=== PATIENT | male | born 1950 | race Caucasian/White ===

== ENCOUNTER 2020-08-11 10:03 | Outpatient (REF) | payer MEDICARE, BC, SELFPAY ==
[2020-08-11 12:56] LABS: Prostate Specific Antigen 0.08 ng/mL (<0.05-4.0)
== END 2020-08-11 10:04 | disposition home or self-care (01) ==
LOC: HO.LAB 10:03
PROVIDERS: PCP Internal Medicine; Visit Provider Urology
DX: Z12.5 Encounter for screening for malignant neoplasm of prostate (principal); C61 Malignant neoplasm of prostate
CPT/HCPCS: 84153

== ENCOUNTER 2020-12-19 08:40 | Outpatient (REF) | payer MEDICARE, BC, SELFPAY ==
[2020-12-19 09:18] LABS: MANUAL DIFF FLAG NO
[2020-12-19 09:26] LABS: Basophils Percent Auto 0.4 % (0-2); Eosinophils Absolute Auto 0.2 X10*3/uL (0.0-0.4); Eosinophils Percent Auto 3.3 % (0-4); Hematocrit 42.4 % (42-52); Hemoglobin 14.6 g/dl (14.0-18.0); Imm Gran Abs Auto 0.03 X10*3/uL (0.00-0.03); Imm Gran Pct Auto 0.4 % (0.0-0.4); Lymphocytes Absolute Auto 1.5 X10*3/uL (1.2-4.9); Lymphocytes Percent Auto 22.1 % (20-40); Mean Corpuscular HGB Conc 34.4 g/dl (31.0-36.0); Mean Corpuscular Hemoglobin 30.6 pg (27.0-33.0); Mean Corpuscular Volume 88.9 fL (80-98); Mean Platelet Volume 9.5 fL (9.4-12.4); Monocytes Absolute Auto 0.5 X10*3/uL (0.1-1.2); Monocytes Percent Auto 7.1 % (2-11); Neutrophils Absolute Auto 4.5 X10*3/uL (2.0-8.3); Neutrophils Percent Auto 66.7 % (45-73); Platelet Count 246 X10*3/uL (160-400); Red Blood Count 4.77 X10*6/uL (4.60-5.80); Red Cell Distribution Width 13.7 % (11.0-16.0); White Blood Count 6.8 X10*3/uL (4.8-10.8)
[2020-12-19 09:56] LABS: Alanine Aminotransferase 18 U/L (0-40); Albumin Level 4.4 g/dL (3.5-5.0); Alkaline Phosphatase 42 U/L (39-117); Anion Gap 13 (12-20); Aspartate Amino Transferase 18 U/L (5-37); Bilirubin Total 0.7 mg/dL (0.0-1.0); Blood Urea Nitrogen 24 mg/dL (9-16); Calcium 9.3 mg/dL (8.4-10.2); Carbon Dioxide 27 mmol/L (22-29); Chloride 108 mmol/L (96-108); Cholesterol 151 mg/dL; Estimated Glomerular Filt Rate > 60; Glucose Fasting 99 mg/dL (60-99); HDL Cholesterol 38 mg/dL; LDL Cholesterol Calculated 99 mg/dl; Potassium 4.6 mmol/L (3.3-5.1); Sodium 143 mmol/L (135-145); Total Protein 7.6 g/dL (6.5-8.0); Triglycerides 74 mg/dL
[2020-12-19 10:27] LABS: PSA,Total (Free>4and<10) 0.09 ng/mL (0.00-4.00)
[2020-12-19 11:02] LABS: T4 Thyroxine 6.4 ug/dL (4.5-12.0)
[2020-12-22 01:32] LABS: Folate 10.5 ng/mL (> or = 4.0); Vitamin B12 298 pg/mL (200-900)
== END 2020-12-19 08:41 | disposition home or self-care (01) ==
LOC: HO.LAB 08:40
PROVIDERS: PCP Internal Medicine; Visit Provider Internal Medicine
DX: Z00.00 Encounter for general adult medical examination without abnormal findings (principal); Z12.5 Encounter for screening for malignant neoplasm of prostate; D12.6 Benign neoplasm of colon, unspecified; E78.00 Pure hypercholesterolemia, unspecified; Z85.46 Personal history of malignant neoplasm of prostate; Z72.0 Tobacco use
CPT/HCPCS: 36415; 80053; 80061; 82607; 82746; 84153; 84436; 84443; 85025

== ENCOUNTER → 2021-02-06 13:52 | Outpatient (BNVA) | payer MEDICARE, BC, SELFPAY | PROVIDERS: PCP Internal Medicine; Visit Provider Urology | DX: Z13.89 Encounter for screening for other disorder (principal) | CPT/HCPCS: Q3014 ==

== ENCOUNTER 2021-07-31 11:23 | Outpatient (REF) | payer MEDICARE, BC, SELFPAY ==
[2021-07-31 12:57] LABS: Prostate Specific Antigen 0.07 ng/mL (<0.05-4.0)
== END 2021-07-31 11:24 | disposition home or self-care (01) ==
LOC: HO.LAB 11:23
PROVIDERS: PCP Internal Medicine; Visit Provider Urology
DX: Z12.6 Encounter for screening for malignant neoplasm of bladder (principal); C61 Malignant neoplasm of prostate
CPT/HCPCS: 36415; 84153

== ENCOUNTER → 2021-08-08 11:25 | Outpatient (BNVA) | payer MEDICARE, BC, SELFPAY | PROVIDERS: PCP Internal Medicine; Visit Provider Urology | DX: C61 Malignant neoplasm of prostate (principal); E78.00 Pure hypercholesterolemia, unspecified; E55.9 Vitamin D deficiency, unspecified; Z88.8 Allergy status to other drugs, medicaments and biological substances; Z79.899 Other long term (current) drug therapy | CPT/HCPCS: Q3014 ==

== ENCOUNTER 2021-08-24 11:09 | Outpatient (REF) | payer MEDICARE, BC, SELFPAY | END 2021-08-24 11:10 | disposition home or self-care (01) | LOC: HO.LAB 11:09 | PROVIDERS: PCP Internal Medicine; Visit Provider Internal Medicine | DX: Z20.822 Contact with and (suspected) exposure to COVID-19 (principal) | CPT/HCPCS: C9803; U0003; U0005 ==

== ENCOUNTER 2021-12-24 07:50 | Outpatient (REF) | payer MEDICARE, BC, SELFPAY ==
[2021-12-24 08:04] LABS: MANUAL DIFF FLAG NO
[2021-12-24 08:24] LABS: Basophils Percent Auto 0.4 % (0-2); Eosinophils Absolute Auto 0.4 X10*3/uL (0.0-0.4); Eosinophils Percent Auto 4.8 % (0-4); Hematocrit 44.7 % (42.0-52.0); Hemoglobin 15.2 g/dl (14.0-18.0); Imm Gran Abs Auto 0.04 X10*3/uL (0.00-0.03); Imm Gran Pct Auto 0.5 % (0.0-0.4); Lymphocytes Absolute Auto 2.2 X10*3/uL (1.2-4.9); Lymphocytes Percent Auto 30.3 % (20-40); Mean Corpuscular Hemoglobin 30.8 pg (27.0-33.0); Mean Corpuscular Volume 90.7 fL (80.0-98.0); Mean Platelet Volume 9.4 fL (9.4-12.4); Monocytes Absolute Auto 0.5 X10*3/uL (0.1-1.2); Neutrophils Absolute Auto 4.2 x10*3/uL (2.0-8.3); Platelet Count 278 X10*3/uL (160-400); Red Blood Count 4.93 X10*6/uL (4.60-5.80); Red Cell Distribution Width 13.7 % (11.0-16.0); White Blood Count 7.3 X10*3/uL (4.8-10.8)
[2021-12-24 08:44] LABS: Alanine Aminotransferase 14 U/L (0-40); Albumin Level 4.4 g/dL (3.5-5.0); Alkaline Phosphatase 42 U/L (39-117); Anion Gap 11 (12-20); Aspartate Amino Transferase 19 U/L (5-37); Bilirubin Total 0.8 mg/dL (0.0-1.0); Blood Urea Nitrogen 19 mg/dL (9-16); Calcium 9.5 mg/dL (8.4-10.2); Carbon Dioxide 27 mmol/L (22-29); Chloride 109 mmol/L (96-108); Cholesterol 161 mg/dL; Estimated Glomerular Filt Rate > 60; Glucose Random 96 mg/dL (60-115); HDL Cholesterol 36 mg/dL; LDL Cholesterol Calculated 105 mg/dl; Potassium 4.4 mmol/L (3.3-5.1); Sodium 143 mmol/L (135-145); Total Protein 7.4 g/dL (6.5-8.0); Triglycerides 100 mg/dL
[2021-12-24 09:05] LABS: Free T4 (Free Thyroxine) 0.84 ng/dL (0.71-1.85); PSA,Total (Free>4and<10) 0.08 ng/mL (0.00-4.00); Thyroid Stimulating Hormone 2.31 uIU/mL (0.32-4.0); Vitamin D 25-OH Total 34.2 ng/mL (>30)
[2021-12-24 09:33] LABS: Folate 8.9 ng/mL (> or = 4.0); Vitamin B12 289 pg/mL (200-900)
== END 2021-12-24 07:51 | disposition home or self-care (01) ==
LOC: HO.LAB 07:50
PROVIDERS: PCP Internal Medicine; Visit Provider Internal Medicine
DX: Z12.5 Encounter for screening for malignant neoplasm of prostate (principal); C61 Malignant neoplasm of prostate; E78.00 Pure hypercholesterolemia, unspecified
CPT/HCPCS: 36415; 80053; 80061; 82306; 82607; 82746; 84153; 84439; 84443; 85025

== ENCOUNTER 2021-12-31 18:06 | Emergency (ER) | payer MEDICARE, BC, SELFPAY ==
--- NOTE | ~2021-12-31 | XR_ITS ---
EXAMINATION: XR CHEST CLINICAL INFORMATION: Food impaction. COMPARISON: None. TECHNIQUE: AP view of the chest was obtained. FINDINGS: The tracheal air column appears patent. No unexpected radiopaque foreign bodies. Normal appearance of the cardiomediastinal silhouette. No focal airspace opacities, pleural effusions or pneumothorax. No acute osseous abnormalities. XR/XR chest 1V IMPRESSION: No acute cardiopulmonary abnormalities. No unexpected radiopaque foreign bodies. If indicated, for food impaction, consider correlation with an esophagram.
[2021-12-31 18:26] VITALS: BP 164/71; PULSE 88; O2SAT 99
[2021-12-31 18:33] VITALS: BP 141/75; PULSE 75; RESP 18; O2SAT 95; BMI 20.3
--- NOTE | 2021-12-31 18:43 | ED.SKABFB ---
HPI - Skin/Abscess/Foreign Bdy General Chief complaint: Skin/Abscess/Foreign Body Stated complaint: CHICKEN STUCK IN THROAT,+TALK,-SWALLOW PER EMS Time Seen by Provider: 12/31/21 18:17 Source: patient Mode of arrival: EMS Limitations: no limitations History of Present Illness HPI narrative: Patient with history of achalazia with frequent food impaction has not had endoscopy yet had chicken just prior to arrival and feel food stuck in mid chest spitting up saliva prior to arrival Related Data Home Medications Medication Instructions Recorded Confirmed cholecalciferol (vitamin D3) 25 25 mcg PO DAILY 12/26/20 12/28/21 mcg (1,000 unit) capsule sildenafil 50 mg tablet 50 mg PO DAILY PRN 12/26/20 12/28/21 calcium carbonate 200 mg calcium 200 mg PO .QD PRN tab 12/28/21 12/28/21 (500 mg) chewable tablet (Tums) omeprazole 20 mg capsule,delayed 20 mg PO DAILY PRN 12/28/21 12/28/21 release Previous Rx's Medication Instructions Recorded atorvastatin 10 mg tablet 10 mg PO DAILY 90 Days #90 tab 12/28/21 fenofibrate 160 mg tablet 160 mg PO DAILY 90 Days #90 tab 12/28/21 Allergies Allergy/AdvReac Type Severity Reaction Status Date / Time simvastatin Allergy Unknown Unknown Verified 12/28/21 08:58 Review of Systems Review of Systems: Yes all other systems are reviewed and are negative [facility] Past Medical History Medical History GERD (gastroesophageal reflux disease) Hypercholesterolemia Medicare annual wellness visit, initial Prostate cancer Tobacco abuse Vitamin D deficiency Surgical History History of colectomy History of ear surgery History of excision of pilonidal cyst History of eye surgery History of nasal surgery History of placement of ear tubes History of skin graft History of surgery on arm Family History Family History Father Liver cancer Mother Liver cancer Sister Esophagus cancer Social History Social History Alcohol intake: current Alcohol intake frequency: 3 or more drinks per day Alcohol type: wine Patient Tobacco Use Status: Current someday Tobacco user Years Smoked: 3-4 cigars a month Advance Directives: No Advance Directives Information Provided: No Physical Exam Vital Signs: Vital Signs: Last Vital Signs Pulse 75 12/31/21 18:33 Resp 18 12/31/21 18:33 BP 141/75 H 12/31/21 18:33 Pulse Ox 95 12/31/21 18:33 BMI result Body Mass Index 20.3 Appearance: Alert. Oriented X3. No acute distress. ENT: Pharynx normal. Oral Mucosa moist Neck: Normal inspection. Neck supple. No stridor CVS: Normal heart rate and rhythm. Pulses normal. Respiratory: No respiratory distress. Equal air entry bilateral, no wheezing/rales/rhonchi Abdomen: Soft and nontender. Bowel sounds are present, Skin: Skin warm and dry. Normal skin color. Normal skin turgor. Extremities: No lower extremity edema. No calf tenderness Neuro: Oriented X 3. No motor deficit. MDM - Skin/Abscess/Foreign Bdy MDM Narrative Medical decision making narrative: Patient had samuel austyn and chicken piece passed down able to take p.o. fluids chest x-ray negative patient has planned to have endoscopy done soon advised to have liquid diet for now Discharge Plan Discharge Clinical Impression: Achalasia of esophagus Patient Disposition: Home, Self-Care Instructions: Dysphagia (ED) Additional Instructions: Try to have semi solid food only with lot of liquids Follow-up with recep as scheduled for endoscopy Prescriptions: No Action sildenafil 50 mg tablet 50 mg PO DAILY PRN0RF Rx Instructions: administer 30 minutes to 4 hours before activity cholecalciferol (vitamin D3) 25 mcg (1,000 unit) capsule 25 mcg PO DAILY 0RF omeprazole 20 mg capsule,delayed release(DR/EC) 20 mg PO DAILY PRN (Reason: gerd) 0RF calcium carbonate [Tums] 200 mg calcium (500 mg) tablet,chewable 200 mg PO .QD PRN (Reason: dyspepsia) 0RF atorvastatin 10 mg tablet 10 mg PO DAILY 90 Days Qty: 90 3RF fenofibrate 160 mg tablet 160 mg PO DAILY 90 Days Qty: 90 3RF Interventions: ED Discharge Assessment Last Done: 12/31/21 19:42 Discharge Date/Time: 12/31/21 19:43
== END 2021-12-31 19:43 | disposition home or self-care (01) ==
PROVIDERS: Emergency Provider Internal Medicine; PCP Internal Medicine
DX: K22.0 Achalasia of cardia (principal); E78.5 Hyperlipidemia, unspecified; F17.200 Nicotine dependence, unspecified, uncomplicated; Z79.02 Long term (current) use of antithrombotics/antiplatelets
CPT/HCPCS: 71045; 99283

== ENCOUNTER 2022-01-08 11:15 | Day surgery (SDC) | payer MEDICARE, BC, SELFPAY ==
--- NOTE | 2022-01-07 10:55 | HO.ANESPROP2 ---
Documented by User: Anahi Sow NP 01/07/22 10:56 HPI - Anesthesia Eval Consult details Narrative: 71yo M for Upper Endoscopy with Balloon Dilitation PMFSH Active Problems Active Problems: All Active Problems (Updated 01/01/22 @ 00:01 by Sea Ding) Bicipital tendinitis of left shoulder (Acute) Impacted cerumen of right ear (Acute) Dysphagia (Acute) Vitamin B12 deficiency (Acute) Encounter for subsequent annual wellness visit (AWV) in Medicare patient (Acute) Nocturia more than twice per night (Acute) Prostate cancer (Acute) GERD (gastroesophageal reflux disease) (Acute) Tobacco abuse (Acute) Hypercholesterolemia (Acute) Past Medical History Medical History GERD (gastroesophageal reflux disease) Hypercholesterolemia Medicare annual wellness visit, initial Prostate cancer Tobacco abuse Vitamin D deficiency Family History Family History Father Liver cancer Mother Liver cancer Sister Esophagus cancer Surgical History Surgical History History of colectomy History of ear surgery History of excision of pilonidal cyst History of eye surgery History of nasal surgery History of placement of ear tubes History of skin graft History of surgery on arm Social History Social History Housing: House Alcohol intake: current Alcohol intake frequency: 3 or more drinks per day Alcohol type: wine Patient Tobacco Use Status: Former Tobacco user Tobacco use type: Cigar Years Smoked: 3-4 cigars a month e-Cigarette/Vaping Use: Never Used Second Hand Smoke Exposure: Yes Use of substances other than those prescribed or required for medical reasons: Yes Are you DNR?: No Advance Directives: No Advance Directives Information Provided: Yes Recently lost weight without trying: No Nutrition Risks: No Nutritional Risk Current occupational status: retired Meds Allergies Allergy/AdvReac Type Severity Reaction Status Date / Time simvastatin AdvReac Intermediate Numbness Verified 01/08/22 12:20 Home Medications Medication Instructions Recorded Confirmed Last Taken Type cholecalciferol (vitamin D3) 25 25 mcg PO DAILY 12/26/20 12/28/21 Unknown History mcg (1,000 unit) capsule sildenafil 50 mg tablet 50 mg PO DAILY PRN 12/26/20 12/28/21 Unknown History calcium carbonate 200 mg calcium 200 mg PO .QD PRN tab 12/28/21 12/28/21 Unknown History (500 mg) chewable tablet (Tums) omeprazole 20 mg capsule,delayed 20 mg PO DAILY PRN 12/28/21 12/28/21 Unknown History release Exam Exam Date and Time: January 07, 2022 1055 Pertinent Lab Results Pertinent Lab Results: Laboratory Tests 12/24/21 12/24/21 08:03 08:03 WBC 7.3 Hgb 15.2 Hct 44.7 Plt Count 278 Sodium 143 Potassium 4.4 Chloride 109 H Carbon Dioxide 27 BUN 19 H Creatinine 0.99 Assessment and Plan Assessment Anesthesia Assessment: Chart Reviewed Documented by User: Kishan Ha MD 01/08/22 17:12 [facility] Past Medical History Medical History GERD (gastroesophageal reflux disease) Hypercholesterolemia Medicare annual wellness visit, initial Prostate cancer Tobacco abuse Vitamin D deficiency Family History Family History Father Liver cancer Mother Liver cancer Sister Esophagus cancer Family history of problems with anesthesia: No Surgical History Surgical History History of colectomy History of ear surgery History of excision of pilonidal cyst History of eye surgery History of nasal surgery History of placement of ear tubes History of skin graft History of surgery on arm History of Problems with Anesthesia: No Social History Social History Housing: House Alcohol intake: current Alcohol intake frequency: 3 or more drinks per day Alcohol type: wine Patient Tobacco Use Status: Former Tobacco user Tobacco use type: Cigar Years Smoked: 3-4 cigars a month e-Cigarette/Vaping Use: Never Used Second Hand Smoke Exposure: Yes Use of substances other than those prescribed or required for medical reasons: Yes Are you DNR?: No Advance Directives: No Advance Directives Information Provided: Yes Recently lost weight without trying: No Nutrition Risks: No Nutritional Risk Current occupational status: retired Meds Allergies Allergy/AdvReac Type Severity Reaction Status Date / Time simvastatin AdvReac Intermediate Numbness Verified 01/08/22 12:20 Home Medications Medication Instructions Recorded Confirmed Last Taken Type cholecalciferol (vitamin D3) 25 25 mcg PO DAILY 12/26/20 12/28/21 Unknown History mcg (1,000 unit) capsule sildenafil 50 mg tablet 50 mg PO DAILY PRN 12/26/20 12/28/21 Unknown History calcium carbonate 200 mg calcium 200 mg PO .QD PRN tab 12/28/21 12/28/21 Unknown History (500 mg) chewable tablet (Tums) omeprazole 20 mg capsule,delayed 20 mg PO DAILY PRN 12/28/21 12/28/21 Unknown History release Exam Airway Mallampati Class: II TM Dist: >3cm Neck ROM: Full Partial: Upper Loose/Missing/Broken Teeth: Yes Heart: rrr Lungs: bl breath sounds Assessment and Plan Assessment Anesthesia Assessment: Anesthesia Plan Discussed Final Anesthetic Review Family History of Problems with Anesthesia: No History of Problems with Anesthesia: No NPO: Yes ASA Class: II Final Preanesthetic Review: Meds/Allgs Chart Reviewed, Consent Obtained/Reviewed and Anes Risks/Benef Reviewed Patient Risk: Intermediate Procedure Risk: Intermediate Anesthetic Plan Anesthetic Plan: MAC: Disposition: Standard PACU
[2022-01-08 12:16] VITALS: BMI 20.9
[2022-01-08 12:22] VITALS: BP 132/62; PULSE 53; RESP 16; TEMP 36.6; O2SAT 96
[2022-01-08] MEDS: Lactated Ringers 1,000 ML 100 ML IVCONT (12:29)
--- NOTE | 2022-01-08 13:11 | MHC.SHP ---
Pre-Procedural Eval Section A Date of Service: 01/08/22 The patient is an INPATIENT: No Changes since office visit: No Cold of Flu in the past 2 weeks, No New Medical Problems, No Changes in Medication and No Patient answered all questions The History & Physical has been completed within 30 days and I have reviewed it.: Yes Section B Chief Complaint: dysphagia Allergies: Allergies Allergy/AdvReac Type Severity Reaction Status Date / Time simvastatin AdvReac Intermediate Numbness Verified 01/08/22 12:20 Plan I have reviewed the history and physical and performed a pertinent physical examination on my patient. No changes have occurred unless specified.
--- NOTE | 2022-01-08 13:40 | PM.OP ---
Brief Operative Note Date of Service: 01/08/22 Pre-op diagnosis: dyspahgia Procedure: egd Surgeon: Jean Carlos Dc Anesthesia: MAC Was an Berry Picker Machine Operator used for this Procedure?: No Estimated blood loss (mL): 5 Pathology: other (bxs antrum,egj) Condition: stable Disposition: PACU
[2022-01-08 13:44] VITALS: BP 124/62; PULSE 57; RESP 17; TEMP 36.2; O2SAT 97
--- NOTE | 2022-01-08 13:58 | OP_ITS ---
SURGEON: Jean Carlos Dc MD INDICATIONS: Dysphagia. PREOPERATIVE DIAGNOSIS: POSTOPERATIVE DIAGNOSIS: PROCEDURE PERFORMED: Upper endoscopy with biopsy and balloon dilation. ESTIMATED BLOOD LOSS: COMPLICATIONS: ANESTHESIA: ASSISTANTS: SPECIMENS: MEDICATIONS: Monitored anesthesia care. DESCRIPTION OF PROCEDURE: History and physical were performed. The risks and benefits of the procedure were explained to the patient. Informed consent was obtained. The patient was placed in the left lateral decubitus position. The Olympus video gastroscope was introduced into the esophagus, stomach, and duodenum. Examination was performed. The scope was removed. He tolerated the procedure well. He was returned to the recovery area in stable condition. FINDINGS: Esophagus: The esophagus was normal. There was no stricture, mass or narrowing. The scope easily passed into the stomach. There was no esophagitis. Stomach: The stomach showed no evidence of masses, ulcers, or polyps. Antral biopsies were obtained to evaluate for H pylori. Duodenum: The bulb and second portion were normal. Balloon dilation of the EG junction was performed to 20 mm for 60 seconds through the scope balloon with some superficial laceration of the mucosa consistent with successful dilation. Biopsies were obtained from the EG junction. IMPRESSION: 1. Dysphagia. 2. Balloon dilation of esophagogastric junction. RECOMMENDATION: Follow up the biopsy results. MD NIRAJ Guido/FLORENTINOL / [id number]
[2022-01-08 14:02] VITALS: BP 129/62; PULSE 66; RESP 18; TEMP 36.1; O2SAT 97
== END 2022-01-08 14:44 | disposition home or self-care (01) ==
PROVIDERS: PCP Internal Medicine; Visit Provider Internal Medicine Gastroenterology
PROC: (CPT 43249; principal; 2022-01-08 12:40)
DX: R13.10 Dysphagia, unspecified (principal); R09.89 Other specified symptoms and signs involving the circulatory and respiratory systems; K21.9 Gastro-esophageal reflux disease without esophagitis; E78.00 Pure hypercholesterolemia, unspecified; E55.9 Vitamin D deficiency, unspecified; Z79.899 Other long term (current) drug therapy; Z88.8 Allergy status to other drugs, medicaments and biological substances; Z85.46 Personal history of malignant neoplasm of prostate; Z98.890 Other specified postprocedural states; Z90.49 Acquired absence of other specified parts of digestive tract; Z87.891 Personal history of nicotine dependence
CPT/HCPCS: 43249; 43239; 88305; 88342; C1726

== ENCOUNTER 2022-02-07 07:37 | Outpatient (REF) | payer MEDICARE, BC, SELFPAY ==
[2022-02-07 08:47] LABS: Prostate Specific Antigen 0.06 ng/mL (<0.05-4.0)
== END 2022-02-07 07:38 | disposition home or self-care (01) ==
LOC: HO.LAB 07:37
PROVIDERS: PCP Internal Medicine; Visit Provider Urology
DX: Z12.5 Encounter for screening for malignant neoplasm of prostate (principal); C61 Malignant neoplasm of prostate
CPT/HCPCS: 36415; 84153

== ENCOUNTER → 2022-02-13 13:09 | Outpatient (BNVA) | payer MEDICARE, BC, SELFPAY | PROVIDERS: PCP Internal Medicine; Visit Provider Urology | DX: N52.35 Erectile dysfunction following radiation therapy (principal); C61 Malignant neoplasm of prostate | CPT/HCPCS: 51798; 99212 ==

== ENCOUNTER 2023-02-05 10:12 | Outpatient (REF) | payer MEDICARE, BC, SELFPAY ==
[2023-02-05 12:25] LABS: Prostate Specific Antigen < 0.10 ng/mL (<0.05-4.0)
== END 2023-02-05 10:13 | disposition home or self-care (01) ==
LOC: HO.LAB 10:12
PROVIDERS: PCP Internal Medicine; Visit Provider Urology
DX: N40.1 Benign prostatic hyperplasia with lower urinary tract symptoms (principal); N13.8 Other obstructive and reflux uropathy; C61 Malignant neoplasm of prostate; Z12.5 Encounter for screening for malignant neoplasm of prostate
CPT/HCPCS: 36415; 84153

== ENCOUNTER → 2023-02-13 09:14 | Outpatient (BNVA) | payer MEDICARE, BC, SELFPAY | PROVIDERS: PCP Internal Medicine; Visit Provider Urology | DX: C61 Malignant neoplasm of prostate (principal) | CPT/HCPCS: 51798; 99212 ==

== ENCOUNTER 2023-03-26 08:01 | Outpatient (REF) | payer MEDICARE, BC, SELFPAY ==
[2023-03-26 08:17] LABS: MANUAL DIFF FLAG NO
[2023-03-26 08:33] LABS: Basophils Percent Auto 0.5 % (0-2); Eosinophils Absolute Auto 0.3 X10*3/uL (0.0-0.4); Eosinophils Percent Auto 5.1 % (0-4); Hematocrit 42.2 % (42.0-52.0); Hemoglobin 14.6 g/dl (14.0-18.0); Imm Gran Abs Auto 0.04 X10*3/uL (0.00-0.03); Imm Gran Pct Auto 0.6 % (0.0-0.4); Lymphocytes Absolute Auto 1.9 X10*3/uL (1.2-4.9); Lymphocytes Percent Auto 29.6 % (20-40); Mean Corpuscular HGB Conc 34.6 g/dl (31.0-36.0); Mean Corpuscular Hemoglobin 31.5 pg (27.0-33.0); Mean Corpuscular Volume 90.9 fL (80.0-98.0); Mean Platelet Volume 9.6 fL (9.4-12.4); Monocytes Absolute Auto 0.4 X10*3/uL (0.1-1.2); Monocytes Percent Auto 6.8 % (2-11); Neutrophils Absolute Auto 3.6 x10*3/uL (2.0-8.3); Neutrophils Percent Auto 57.4 % (45-73); Platelet Count 244 X10*3/uL (160-400); Red Blood Count 4.64 X10*6/uL (4.60-5.80); Red Cell Distribution Width 13.7 % (11.0-16.0); White Blood Count 6.3 X10*3/uL (4.8-10.8)
[2023-03-26 09:23] LABS: Alanine Aminotransferase 15 U/L (0-40); Albumin Level 4.2 g/dL (3.5-5.0); Alkaline Phosphatase 39 U/L (39-117); Anion Gap 10 (12-20); Aspartate Amino Transferase 16 U/L (5-37); Bilirubin Total 0.8 mg/dL (0.0-1.0); Blood Urea Nitrogen 19 mg/dL (9-16); Calcium 9.4 mg/dL (8.4-10.2); Carbon Dioxide 27 mmol/L (22-29); Chloride 111 mmol/L (96-108); Cholesterol 140 mg/dL; Estimated Glomerular Filt Rate > 60; Glucose Random 96 mg/dL (60-115); HDL Cholesterol 33 mg/dL; LDL Cholesterol Calculated 89 mg/dl; Potassium 4.5 mmol/L (3.3-5.1); Sodium 143 mmol/L (135-145); Total Protein 6.8 g/dL (6.5-8.0); Triglycerides 93 mg/dL
[2023-03-26 10:00] LABS: Folate 8.8 ng/mL (> or = 4.0); Free T4 (Free Thyroxine) 0.79 ng/dL (0.71-1.85); Prostate Specific Antigen Scr < 0.10 ng/mL (<0.05-4.0); Thyroid Stimulating Hormone 2.46 uIU/mL (0.32-4.0); Vitamin B12 285 pg/mL (200-900)
== END 2023-03-26 08:02 | disposition home or self-care (01) ==
LOC: HO.LAB 08:01
PROVIDERS: PCP Internal Medicine; Visit Provider Internal Medicine
DX: E78.00 Pure hypercholesterolemia, unspecified (principal); Z12.5 Encounter for screening for malignant neoplasm of prostate
CPT/HCPCS: 36415; 80053; 80061; 82607; 82746; 84153; 84439; 84443; 85025

== ENCOUNTER 2023-04-04 11:12 | Outpatient (REF) | payer MEDICARE, BC, SELFPAY ==
--- NOTE | ~2023-04-04 | XR_ITS ---
EXAMINATION: XR SHOULDER, LEFT CLINICAL INFORMATION: Bicipital tendinitis. COMPARISON: None available. TECHNIQUE: Three views of the left shoulder. FINDINGS: Dense calcification is seen in the supraspinatus tendon. Some mild degenerative changes are seen at the AC joint. The acromioclavicular joint is well preserved. No fractures or dislocations. XR/XR shoulder LT min 2V IMPRESSION: Dense calcification in the supraspinatus tendon consistent with calcific tendinitis.
== END 2023-04-04 11:13 | disposition home or self-care (01) ==
LOC: HO.XRAY 11:12
PROVIDERS: PCP Internal Medicine; Visit Provider Internal Medicine
DX: M75.22 Bicipital tendinitis, left shoulder (principal)
CPT/HCPCS: 73030

== ENCOUNTER 2023-05-12 13:54 | Outpatient (AMB) | payer MEDICARE, BC, SELFPAY ==
--- NOTE | 2023-05-12 13:57 | A.OFFVIS_ITS ---
Intake Intake Visit Reasons: TECHNICAL INSTRUCTOR COURSE DEVELOPER-Bicipital tendinitis, left shoulder Intake Note: James is a 73 year old right hand dominant male who presents today as a new patient for a evaluation for left shoulder pain. Patient reports ongoing pain for a year. He states that his pain is more focused in the bicep area. Pain is worse when lifting his arm, pushing, pulling and reaching. Denies numbness and tingling. Allergies simvastatin Adverse Reaction (Intermediate, Verified 05/12/23 14:01) Numbness HPI TECHNICAL INSTRUCTOR COURSE DEVELOPER-Bicipital tendinitis, left shoulder HPI Details 73-year-old right hand dominant male who presents in the office today, as a new patient, for an evaluation of left shoulder pain. The patient reports the pain has been chronic for a year, since 2021. He states his pain is focused in the bicep area. He states the pain increases when lifting his arm, pushing, pulling, or reaching. He denies numbness or tingling. Patient denies a history of diabetes mellitus. [facility] Medical History GERD (gastroesophageal reflux disease) Hypercholesterolemia Medicare annual wellness visit, initial Prostate cancer Tobacco abuse Vitamin D deficiency Surgical History History of colectomy History of ear surgery History of excision of pilonidal cyst History of eye surgery History of nasal surgery History of placement of ear tubes History of skin graft History of surgery on arm Family History Father Liver cancer Mother Liver cancer Sister Esophagus cancer Social History Housing: House Alcohol intake: current Alcohol intake frequency: 3 or more drinks per day Alcohol type: wine Patient Tobacco Use Status: Former Tobacco user Tobacco use type: Cigar Years Smoked: 3-4 cigars a month e-Cigarette/Vaping Use: Never Used Second Hand Smoke Exposure: Yes Current occupational status: retired Cognitive needs: No Hearing needs: No Vision needs: Yes Review of Systems Const All systems reviewed & are unremarkable except as noted in HPI and below Physical Exam Const General: cooperative, healthy appearing, comfortable, no acute distress, well developed and alert Orientation/consciousness: patient oriented x3 HEENT Head: Yes normal to inspection, Yes normocephalic and Yes atraumatic Eyes General: appearance normal, both eyes and all related structures Resp Effort & Inspection: normal respiratory effort and able to speak in complete sentences Cardio Rate: regular rate Peripheral pulses: Peripheral pulses 2+ throughout GI Palpation (GI): Soft to palpation Skin Lesions: no lesions Rashes: no rashes Neuro General: patient oriented x3 Extrem Other: Left shoulder: Able to reach end range with forward flexion. Abduction to 45 degrees. Able to reach T12. Pain with cross-body reach. Pain with empty can. Negative drop arm. NVI. Office Procedures Joint Injection/Drain Joint Injection/Drain Primary Site: left shoulder Prep: site was prepped using aseptic technique, ethochloride spray was applied and injection warnings given Injected: 80 mg of, DepoMedrol, with 8 mL of (2% plain lido) and in the subcromial space Approach Used: posterolateral Procedure: The patient tolerated the procedure well, but had some pain with the injection and there was some relief with the local anesthesia Coding 76183 - Large joint Procedure code (CPT) selection complete Results Reviewed Results Reviewed: 05/12/23 14:27 Lidocaine HCl 2 % MPF [Xylocaine 2 % MPF] 5 ml .ROUTE .STK-MED ONE methylPREDNISolone acetate [DEPO-MedroL] 80 mg .ROUTE .STK-MED ONE Assessment & Plan Assessment & Plan (1) Calcific tendonitis of left shoulder: Code(s): M75.32 - Calcific tendinitis of left shoulder Plan Mr. Sandoval is a 73-year-old right hand dominant male who presents in the office today, as a new patient, for an evaluation of left shoulder pain. The patient reports the pain has been chronic for a year, since 2021. He states his pain is focused in the bicep area. He states the pain increases when lifting his arm, pushing, pulling, or reaching. He denies numbness or tingling. Patient denies a history of diabetes mellitus. The patient was offered a cortisone injection in the left shoulder with 80 mg of DepoMedrol. The patient was explained the risk, benefits, and alternatives to receiving this injection. After receiving consent for the injection, the patient had the procedure done while in office today. The patient tolerated the procedure well with no complications. I discussed the roles of conventional treatment verses surgical intervention. I offered the patient a cortisone injection and physical therapy while in the office today. I also discussed the role of physical therapy to work on ROM and strength. In the event the cortisone does not give him relief we will move forward with physical therapy. I discussed the role of surgical intervention but he would like to defer due to age. In the event the cortisone injection and physical therapy does not give relief we will consider moving forward with an MRI. Follow up will be PRN, or sooner if needed. Patient Instructions: Scribed for Cassi Zavala PA-C by Jackie Lorenzo medical services manager, on 05/12/2023 at 1:58 pm, EST. Your attestation Coding Level of Care Code Est Pt Level 3 (33359) Diagnoses Calcific tendonitis of left shoulder M75.32 CPT Codes Coding - 53199 Large joint: 38573 - Large joint ([id number])
== END 2023-05-12 14:43 | disposition home or self-care (01) ==
PROVIDERS: PCP Internal Medicine; Visit Provider Physician Assistant
DX: M75.32 Calcific tendinitis of left shoulder (principal)
CPT/HCPCS: 20610; 99203

== ENCOUNTER → 2023-05-12 13:54 | Outpatient (BNVA) | payer MEDICARE, BC, SELFPAY | PROVIDERS: PCP Internal Medicine; Visit Provider Physician Assistant | DX: M75.32 Calcific tendinitis of left shoulder (principal) | CPT/HCPCS: 20610; J1040 ==

== ENCOUNTER 2023-08-05 10:22 | Outpatient (REF) | payer MEDICARE, BC, SELFPAY | END 2023-08-05 10:23 | disposition home or self-care (01) | LOC: HO.LAB 10:22 | PROVIDERS: PCP Internal Medicine; Visit Provider Urology | DX: Z12.5 Encounter for screening for malignant neoplasm of prostate (principal); C61 Malignant neoplasm of prostate | CPT/HCPCS: 36415; 84153 ==

== ENCOUNTER 2023-08-19 09:09 | Outpatient (AMB) | payer MEDICARE, BC, SELFPAY ==
--- NOTE | 2023-08-19 09:10 | A.OFFVIS_ITS ---
Intake Intake Visit Reasons: 6m/PSA(set) Intake Note: Patient is Present for Telephone Follow Up PSA Urology Med: None Antibiotic Allergy: None Blood Thinner:None Pharamcy: [facility] Allergies simvastatin Adverse Reaction (Intermediate, Verified 08/19/23 09:11) Numbness Medication List - Last Reconciled 08/19/23 by Sorin King MD atorvastatin 10 mg PO DAILY 90 days cholecalciferol (vitamin D3) 25 mcg PO DAILY fenofibrate 160 mg PO DAILY 90 days omeprazole 20 mg PO DAILY PRN HPI HPI Comments History of Present Illness Details James is a very pleasant male. He is a patient of Dr. Paz. He is seen for the following urologic conditions. - prostate cancer Telemedicine Evaluation 15 min Consultation Doximity Lambert Video attempted PSA remains well controlled Voiding parameters stable Nocturia 2-3 effective emptying, minimal urge Erectile dysfunction remains responsive to Viagra Prostate cancer Fatimah 8 2014 initial therapy radiation with 2 years hormone Prostate cancer diagnosed by Dr. Samuel 2014 Initial [place] score 4+4 Initial therapy - external beam radiation with 2 years [facility] therapy Laboratories - 12/17 PSA 0.1, 08/16 0.1, 12/18 <0.1, <0.1, 08/18 <0.1 Erectile dysfunction Managed with Viagra Good effect Rx for viagra - through [facility] Medical History Medicare annual wellness visit, initial GERD (gastroesophageal reflux disease) Prostate cancer Vitamin D deficiency Tobacco abuse Hypercholesterolemia Surgical History History of skin graft History of colectomy History of ear surgery History of eye surgery History of placement of ear tubes History of surgery on arm History of nasal surgery History of excision of pilonidal cyst Family History Father Liver cancer Mother Liver cancer Sister Esophagus cancer Social History Housing: House Alcohol intake: current Alcohol intake frequency: 3 or more drinks per day Alcohol type: wine Patient Tobacco Use Status: Former Tobacco user Tobacco use type: Cigar Years Smoked: 3-4 cigars a month e-Cigarette/Vaping Use: Never Used Second Hand Smoke Exposure: Yes Current occupational status: retired Cognitive needs: No Hearing needs: No Vision needs: Yes Review of Systems Const All systems reviewed & are unremarkable except as noted in HPI and below Reports no additional complaints Resp Reports no additional complaints GI Reports no additional complaints Reports as per HPI Musc Reports no additional complaints Physical Exam Telemedicine evaluation Appropriate responses Regular breathing rate and rhythm HEENT Head: Yes normal to inspection Ears: hearing grossly normal bilaterally Eyes General: appearance normal, both eyes and all related structures Neck Neck: Yes normal visual inspection Chest Chest palpation & inspection: normal inspection of the chest Resp Effort & Inspection: normal respiratory effort and able to speak in complete sentences Assessment & Plan Assessment & Plan (1) Erectile dysfunction due to and not concurrent with radiation therapy: Code(s): N52.35 - Erectile dysfunction following radiation therapy (2) Prostate cancer: Comment: Grade Group [address] Lombardo, Dr. Alarcon Code(s): C61 - Malignant neoplasm of prostate Plan Six month follow-up Orders: Orders Prostate Specific Antigen 6 Months C61 - Malignant neoplasm of prostate Medications: New sildenafil administer 60 minutes before intended activity 100 mg PO ONCE 90 days PRN 12 tabs 1RF sexual activity N52.35 - Erectile dysfunction following radiation therapy, N52.9 - Male erectile dysfunction, unspecified Patient Instructions: Imaging studies, laboratory and physical exam results were discussed and reviewed in detail. No major barriers to patient understanding were identified. An opportunity to ask questions regarding the treatment plan was provided. All questions were answered. The patient expressed understanding and agreement with the above treatment plan. The patient is aware they should contact our office by phone for worsening of their current condition or the appearance of new urologic symptoms. Compliance is encouraged with any medications and followup testing that is ordered. It is a privilege to participate in the urologic care of your patient. If you have any questions or concerns regarding treatment for the above conditions, or other urologic issues, please do not hesitate to contact me. The office telephone contact is [phone]. This note is constructed using voice recognition software. While every effort has been made to ensure accuracy plastic parts designer errors may have been included. Yours sincerely, Dr Sorin King MD, [facility] - Urology Providers of Expert, Compassionate Care for the Genitourinary System Telehealth Telehealth Location of provider rendering services: practice address Location of patient: address on file Patient Identification confirmed using: Name, : Yes Telehealth method: video Patient verbally consented to treatment: Yes Patient verbally consented to billing insurance company: Yes Patient informed of any privacy concerns related to visit: Yes Coding Level of Care Code Tele Est Pt Level 3 (26705) Diagnoses Erectile dysfunction due to and not concurrent with radiation therapy N52.35 Prostate cancer C61
== END 2023-08-19 11:08 | disposition home or self-care (01) ==
LOC: HO.HUSH 09:09
PROVIDERS: PCP Internal Medicine; Visit Provider Urology
DX: N52.35 Erectile dysfunction following radiation therapy (principal); C61 Malignant neoplasm of prostate
CPT/HCPCS: 99213

== ENCOUNTER → 2023-08-19 09:09 | Outpatient (BNVA) | payer MEDICARE, BC, SELFPAY | PROVIDERS: PCP Internal Medicine; Visit Provider Urology ==

== ENCOUNTER 2023-10-10 13:25 | Outpatient (AMB) | payer MEDICARE, BC, SELFPAY ==
--- NOTE | 2023-10-10 13:36 | MHC.OFFVIS ---
Intake Intake Visit Reasons: ov- Calcific tendonitis of left shoulder Intake Note: James is a 73 year old male who presents today for a follow up of his left shoulder pain. Patient reports he is not doing well, still having pain. He states he would like to get an injection. Allergies simvastatin Adverse Reaction (Intermediate, Verified 10/10/23 13:42) Numbness HPI ov- Calcific tendonitis of left shoulder HPI Details 73-year-old male who presents in the office today for a follow up of left shoulder calcific tendonitis. I last saw the patient in the office on 05/12/2023 where he was given a cortisone injection in the left shoulder. He was instructed in the event the injection did not give him relief he would be referred to physical therapy. We did discuss the role of surgical intervention but he was not interested at that time. While in the office today the patient states he is not doing well and is still having pain. He would like to repeat the cortisone injection. [facility] Medical History Medicare annual wellness visit, initial GERD (gastroesophageal reflux disease) Prostate cancer Vitamin D deficiency Tobacco abuse Hypercholesterolemia Surgical History History of skin graft History of colectomy History of ear surgery History of eye surgery History of placement of ear tubes History of surgery on arm History of nasal surgery History of excision of pilonidal cyst Family History Father Liver cancer Mother Liver cancer Sister Esophagus cancer Social History Housing: House Alcohol intake: current Alcohol intake frequency: 3 or more drinks per day Alcohol type: wine Patient Tobacco Use Status: Former Tobacco user Tobacco use type: Cigar Years Smoked: 3-4 cigars a month e-Cigarette/Vaping Use: Never Used Second Hand Smoke Exposure: Yes Current occupational status: retired Cognitive needs: No Hearing needs: No Vision needs: Yes Review of Systems Const All systems reviewed & are unremarkable except as noted in HPI and below Physical Exam Const General: cooperative, healthy appearing and no acute distress Resp Effort & Inspection: normal respiratory effort and able to speak in complete sentences Cardio Rate: regular rate Peripheral pulses: Peripheral pulses 2+ throughout GI Palpation (GI): Soft to palpation Skin Lesions: no lesions Rashes: no rashes Extrem Other: Left shoulder: Forward flexion and abduction to 45 degrees. Pain with cross-body reach. Unable to access empty can due to range of motion limitations due to pain. NVI. Office Procedures Joint Injection/Drain Joint Injection/Drain Primary Site: left shoulder Prep: site was prepped using aseptic technique, ethochloride spray was applied and injection warnings given Injected: 80 mg of, DepoMedrol, with 8 mL of (2% plain lido ) and in the subcromial space Approach Used: posterolateral Procedure: The patient tolerated the procedure well, but had some pain with the injection and there was some relief with the local anesthesia Coding 01315 - Large joint Procedure code (CPT) selection complete Assessment & Plan Assessment & Plan (1) Calcific tendonitis of left shoulder: Code(s): M75.32 - Calcific tendinitis of left shoulder Plan Mr. Sandoval is a 73-year-old male who presents in the office today for a follow up of left shoulder calcific tendonitis. I last saw the patient in the office on 05/12/2023 where he was given a cortisone injection in the left shoulder. He was instructed in the event the injection did not give him relief he would be referred to physical therapy. We did discuss the role of surgical intervention but he was not interested at that time. While in the office today the patient states he is not doing well and is still having pain. He would like to repeat the cortisone injection. The patient was offered a cortisone injection in the left shoulder with 80 mg of DepoMedrol. The patient was explained the risk, benefits, and alternatives to receiving this injection. After receiving consent for the injection, the patient had the procedure done while in office today. The patient tolerated the procedure well with no complications. The patient will given the cortisone injection a month to allow for possible relief. If after four weeks he does not see improvement in his pain he will call the office and we will order an MRI to evaluate the integrity of the rotator cuff and calcium embedded within to see if surgical removal would be beneficial for the patient. Otherwise, follow up will be PRN, or sooner if needed. Patient Instructions: Scribed for Cassi Zavala PA-C by Jackie Lorenzo medical information officer, on 10/10/2023 at 1:45 pm, EST. Coding Level of Care Code Est Pt Level 3 (73430) Diagnoses Calcific tendonitis of left shoulder M75.32 CPT Codes Coding - 52417 Large joint: 93050 - Large joint ([id number])
== END 2023-10-10 14:07 | disposition home or self-care (01) ==
PROVIDERS: PCP Internal Medicine; Visit Provider Physician Assistant
DX: M75.32 Calcific tendinitis of left shoulder (principal)
CPT/HCPCS: 20610; 99213

== ENCOUNTER → 2023-10-10 13:25 | Outpatient (BNVA) | payer MEDICARE, BC, SELFPAY | PROVIDERS: PCP Internal Medicine; Visit Provider Physician Assistant | DX: M75.32 Calcific tendinitis of left shoulder (principal) | CPT/HCPCS: 20610; 99212; J1040 ==

== ENCOUNTER 2024-02-10 10:29 | Outpatient (REF) | payer MEDICARE, BC, SELFPAY ==
[2024-02-10 12:02] LABS: Prostate Specific Antigen < 0.10 ng/mL (<0.05-4.0)
== END 2024-02-10 10:30 | disposition home or self-care (01) ==
LOC: HO.LAB 10:29
PROVIDERS: PCP Internal Medicine; Visit Provider Urology
DX: Z12.5 Encounter for screening for malignant neoplasm of prostate (principal); C61 Malignant neoplasm of prostate
CPT/HCPCS: 36415; 84153

== ENCOUNTER 2024-02-18 11:19 | Outpatient (AMB) | payer MEDICARE, BC, SELFPAY ==
--- NOTE | 2024-02-18 11:26 | A.OFFVIS_ITS ---
Intake Visit Reasons: 6M PSA(set)Confirmed Intake Note: Patient is Present for Follow Up PSA Urology Medication: Sildenafil Antibiotic Allergies: None Blood Thinners: None Allergies simvastatin Adverse Reaction (Intermediate, Verified 02/18/24 11:28) Numbness Medication List - Last Reconciled 02/18/24 by Sorin King MD atorvastatin 10 mg PO DAILY 90 days cholecalciferol (vitamin D3) 25 mcg PO DAILY fenofibrate 160 mg PO DAILY 90 days omeprazole 20 mg PO DAILY PRN sildenafil 100 mg PO ONCE PRN 90 days HPI Comments Details: James is a very pleasant male. He is a patient of Dr. Paz. He is seen for the following urologic conditions. - prostate cancer PSA remains well controlled Voiding parameters stable Nocturia 2-3 effective emptying, minimal urge Erectile dysfunction remains responsive to Viagra when needed Six-month follow-up PSA - will be able to move to yearly following this appointment Prostate cancer Fatimah 8 2014 initial therapy radiation with 2 years hormone Prostate cancer diagnosed by Dr. Samuel 2014 Initial Daisy score 4+4 Initial therapy - external beam radiation with 2 years GnRH therapy Laboratories - 12/17 PSA 0.1, 08/16 0.1, 12/18 <0.1, 02/16 <0.1, 08/18 <0.1, 02/17 <0.1 Erectile dysfunction Managed with Viagra [facility] effect [facility] Medical History Medicare annual wellness visit, initial GERD (gastroesophageal reflux disease) Prostate cancer Vitamin D deficiency Tobacco abuse Hypercholesterolemia Surgical History History of skin graft History of colectomy History of ear surgery History of eye surgery History of placement of ear tubes History of surgery on arm History of nasal surgery History of excision of pilonidal cyst Family History Father Liver cancer Mother Liver cancer Sister Esophagus cancer Social History Housing: House Alcohol intake: current Alcohol intake frequency: 3 or more drinks per day Alcohol type: wine Patient Tobacco Use Status: Former Tobacco user Tobacco use type: Cigar Years Smoked: 3-4 cigars a month e-Cigarette/Vaping Use: Never Used Second Hand Smoke Exposure: Yes Current occupational status: retired Cognitive needs: No Hearing needs: No Vision needs: Yes Review of Systems Const Denies chills and Denies fever(s) Card Reports no additional complaints and Denies syncope Resp Denies cough GI Denies abdominal pain and Denies heartburn Reports as per HPI and Denies change in libido Neuro Denies syncope Psych Denies change in libido Endo Denies change in libido Physical Exam Const General: cooperative, healthy appearing, comfortable and no acute distress Orientation/consciousness: patient oriented x3 HEENT Face and sinus: Yes normal facial exam Mouth: moist mucous membranes Neck Neck: Yes normal visual inspection, Yes full ROM and Yes trachea midline Chest Chest palpation & inspection: normal inspection of the chest Resp Effort & Inspection: normal respiratory effort, able to speak in complete sentences and no respiratory distress GI Inspection: Yes normal to inspection Back/Spine/Pelvis Cervical Spine: normal cervical lordosis Thoracic/Lumbar Spine: thoracic and lumbar spine normal to inspection Skin General skin exam: no rashes or lesions noted Neuro General: patient oriented x3, gait normal, tone normal and moves all extremities Extrem General: Yes normal to inspection and Yes capillary refill normal Assessment & Plan Assessment & Plan (1) Prostate cancer: Comment: Grade Group [address] Lombardo, Dr. Alarcon Code(s): C61 - Malignant neoplasm of prostate Category: Medical (2) Erectile dysfunction due to and not concurrent with radiation therapy: Code(s): N52.35 - Erectile dysfunction following radiation therapy Category: Medical Plan PSA six-month follow-up Orders: Orders Prostate Specific Antigen 6 Months C61 - Malignant neoplasm of prostate Patient Instructions: Imaging studies, laboratory and physical exam results were discussed and reviewed in detail. No major barriers to patient understanding were identified. An opportunity to ask questions regarding the treatment plan was provided. All questions were answered. The patient expressed understanding and agreement with the above treatment plan. The patient is aware they should contact our office by phone for worsening of their current condition or the appearance of new urologic symptoms. Compliance is encouraged with any medications and followup testing that is ordered. It is a privilege to participate in the urologic care of your patient. If you have any questions or concerns regarding treatment for the above conditions, or other urologic issues, please do not hesitate to contact me. The office telephone contact is [phone]. This note is constructed using voice recognition software. While every effort has been made to ensure accuracy leather production worker errors may have been included. Yours sincerely, Dr Sorin King MD, [facility] - Urology Providers of Expert, Compassionate Care for the Genitourinary System Coding Level of Care Code Est Pt Level 3 (66848) Diagnoses Prostate cancer C61 Erectile dysfunction due to and not concurrent with radiation therapy N52.35
== END 2024-02-18 11:57 | disposition home or self-care (01) ==
PROVIDERS: PCP Internal Medicine; Visit Provider Urology
DX: C61 Malignant neoplasm of prostate (principal); N52.35 Erectile dysfunction following radiation therapy
CPT/HCPCS: 99213

== ENCOUNTER → 2024-02-18 11:19 | Outpatient (BNVA) | payer MEDICARE, BC, SELFPAY | PROVIDERS: PCP Internal Medicine; Visit Provider Urology | DX: C61 Malignant neoplasm of prostate (principal); N52.35 Erectile dysfunction following radiation therapy | CPT/HCPCS: 99212 ==

== ENCOUNTER 2024-02-26 08:58 | Outpatient (AMB) | payer MEDICARE, BC, SELFPAY ==
--- NOTE | 2024-02-26 09:23 | MHC.OFFVIS ---
Vital Signs 02/26/24 09:25 Height 5 ft 8 in Weight 139 lb BMI 21.1 Handedness Right Intake Visit Reasons: OV - lt shldr Calcific tendonitis,last inj10/10/23 Intake Note: James is a 73 year old right hand dominant male who presents today for a follow up of his left shoulder pain, last injection 10/10/23. Patient reports his last injection gave him just two days of relief. He expresses that he would like to know why his injection didnt help. Allergies simvastatin Adverse Reaction (Intermediate, Verified 02/26/24 09:24) Numbness HPI HPI OV - lt shldr Calcific tendonitis,last inj10/10/23: Details: 73-year-old right hand dominant male who presents in the office today for a follow up of left shoulder calcific tendonitis. I last saw the patient in the office on 10/10/2023 when he was given a cortisone injection. While in the office today the patient reports the last injection only gave him about 2 days of relief. He would like to discuss why these are not giving him more relief. He states the pain bothers him a lot. [facility] Medical History Medicare annual wellness visit, initial GERD (gastroesophageal reflux disease) Prostate cancer Vitamin D deficiency Tobacco abuse Hypercholesterolemia Surgical History History of skin graft History of colectomy History of ear surgery History of eye surgery History of placement of ear tubes History of surgery on arm History of nasal surgery History of excision of pilonidal cyst Family History Father Liver cancer Mother Liver cancer Sister Esophagus cancer Social History Housing: House Alcohol intake: current Alcohol intake frequency: 3 or more drinks per day Alcohol type: wine Patient Tobacco Use Status: Former Tobacco user Tobacco use type: Cigar Years Smoked: 3-4 cigars a month e-Cigarette/Vaping Use: Never Used Second Hand Smoke Exposure: Yes Current occupational status: retired Cognitive needs: No Hearing needs: No Vision needs: Yes Review of Systems Const All systems reviewed & are unremarkable except as noted in HPI and below Physical Exam Vital Signs: BMI result Body Mass Index 21.1 Const General: cooperative, healthy appearing and no acute distress Resp Effort & Inspection: normal respiratory effort and able to speak in complete sentences Cardio Rate: regular rate Peripheral pulses: Peripheral pulses 2+ throughout GI Palpation (GI): Soft to palpation Skin Lesions: no lesions Rashes: no rashes Extrem Other: Left shoulder: Forward flexion and abduction to 45 degrees. Pain with cross-body reach. Unable to access empty can due to range of motion limitations due to pain. NVI. Office Procedures Joint Injection/Drain Joint Injection/Drain Primary Site: left shoulder Prep: site was prepped using aseptic technique, ethochloride spray was applied and injection warnings given Injected: 80 mg of, DepoMedrol, with 8 mL of (2% plain lido ) and in the subcromial space Approach Used: posterolateral Procedure: The patient tolerated the procedure well, but had some pain with the injection and there was some relief with the local anesthesia Coding 81474 - Large joint Procedure code (CPT) selection complete Assessment & Plan Assessment & Plan (1) Calcific tendonitis of left shoulder: Code(s): M75.32 - Calcific tendinitis of left shoulder Category: Medical Plan Mr. Sandvoal is a 73-year-old right hand dominant male who presents in the office today for a follow up of left shoulder calcific tendonitis. I last saw the patient in the office on 10/10/2023 when he was given a cortisone injection. While in the office today the patient reports the last injection only gave him about 2 days of relief. He would like to discuss why these are not giving him more relief. He states the pain bothers him a lot. Discussed possibly trying another cortisone injection and formal physical therapy. We also discussed an MRI for surgical planning in an attempt to remove the calcium build up. At this time he is not interested in surgical intervention. The patient would like to have another cortisone injection at this time. He would like to discuss physical therapy and an at home exercise program at his next appointment. The patient was offered a cortisone injection in the left shoulder with 80 mg of DepoMedrol. The patient was explained the risk, benefits, and alternatives to receiving this injection. After receiving consent for the injection, the patient had the procedure done while in the office today. The patient tolerated the procedure well with no complications. I discussed with the patient that he can call the office to give me an update on his status and to further discuss options after this injection. Follow up will be PRN, or sooner if needed. Patient Instructions: Scribed by Jackie Lorenzo biomedical engineering professor, for Cassi Zavala PA-C on 02/26/2024 at 9:00 am, EST. Coding Level of Care Code Est Pt Level 4 (68322) Diagnoses Calcific tendonitis of left shoulder M75.32 CPT Codes Coding - 40947 Large joint: 46295 - Large joint ([id number])
[2024-02-26 09:25] VITALS: BMI 21.1
== END 2024-02-26 10:11 | disposition home or self-care (01) ==
PROVIDERS: PCP Internal Medicine; Visit Provider Physician Assistant
DX: M75.32 Calcific tendinitis of left shoulder (principal)
CPT/HCPCS: 20610; 99213

== ENCOUNTER → 2024-02-26 08:58 | Outpatient (BNVA) | payer MEDICARE, BC, SELFPAY | PROVIDERS: PCP Internal Medicine; Visit Provider Physician Assistant | DX: M75.32 Calcific tendinitis of left shoulder (principal) | CPT/HCPCS: 20610; 99212; J1010 ==

== ENCOUNTER 2024-03-31 07:02 | Outpatient (REF) | payer MEDICARE, BC, SELFPAY ==
[2024-03-31 07:13] LABS: MANUAL DIFF FLAG NO
[2024-03-31 07:52] LABS: Basophils Percent Auto 0.5 % (0-2); Eosinophils Absolute Auto 0.2 X10*3/uL (0.0-0.4); Hematocrit 42.2 % (42.0-52.0); Hemoglobin 14.5 g/dl (14.0-18.0); Imm Gran Abs Auto 0.03 X10*3/uL (0.00-0.03); Imm Gran Pct Auto 0.5 % (0.0-0.4); Lymphocytes Absolute Auto 1.9 X10*3/uL (1.2-4.9); Mean Corpuscular HGB Conc 34.4 g/dl (31.0-36.0); Mean Corpuscular Hemoglobin 30.7 pg (27.0-33.0); Mean Corpuscular Volume 89.4 fL (80.0-98.0); Mean Platelet Volume 9.9 fL (9.4-12.4); Monocytes Absolute Auto 0.5 X10*3/uL (0.1-1.2); Monocytes Percent Auto 8.4 % (2-11); Neutrophils Absolute Auto 3.4 x10*3/uL (2.0-8.3); Neutrophils Percent Auto 55.6 % (45-73); Platelet Count 253 X10*3/uL (160-400); Red Blood Count 4.72 X10*6/uL (4.60-5.80); White Blood Count 6.1 X10*3/uL (4.8-10.8)
[2024-03-31 08:15] LABS: Alanine Aminotransferase 13 U/L (0-40); Albumin Level 4.2 g/dL (3.5-5.0); Alkaline Phosphatase 39 U/L (39-117); Anion Gap 13 (12-20); Aspartate Amino Transferase 14 U/L (5-37); Bilirubin Total 0.7 mg/dL (0.0-1.0); Blood Urea Nitrogen 17 mg/dL (9-16); Calcium 9.5 mg/dL (8.4-10.2); Carbon Dioxide 27 mmol/L (22-29); Chloride 109 mmol/L (96-108); Cholesterol 151 mg/dL (<200); Estimated Glomerular Filt Rate > 60; Glucose Random 90 mg/dL (60-115); HDL Cholesterol 40 mg/dL (>40); LDL Cholesterol Calculated 94 mg/dL (<100); Potassium 4.6 mmol/L (3.3-5.1); Sodium 144 mmol/L (135-145); Total Protein 7.1 g/dL (6.5-8.0); Triglycerides 86 mg/dL (<150)
[2024-03-31 08:35] LABS: Free T4 (Free Thyroxine) 0.85 ng/dL (0.71-1.85); Thyroid Stimulating Hormone 2.57 uIU/mL (0.32-4.0)
[2024-03-31 08:42] LABS: Folate 6.1 ng/mL (> or = 4.0); Prostate Specific Antigen Scr < 0.10 ng/mL (<0.05-4.0); Vitamin B12 217 pg/mL (200-900)
== END 2024-03-31 07:03 | disposition home or self-care (01) ==
LOC: HO.LAB 07:02
PROVIDERS: PCP Internal Medicine; Visit Provider Internal Medicine
DX: E78.00 Pure hypercholesterolemia, unspecified (principal); C61 Malignant neoplasm of prostate; Z12.5 Encounter for screening for malignant neoplasm of prostate
CPT/HCPCS: 36415; 80053; 80061; 82607; 82746; 84153; 84439; 84443; 85025

== ENCOUNTER 2024-04-06 14:45 | Outpatient (AMB) | payer MEDICARE, BC, SELFPAY ==
--- NOTE | 2024-04-06 15:02 | A.OFFPC_ITS ---
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 Accompanied by: Self / Same As Patient Allergies simvastatin Adverse Reaction (Intermediate, Verified 04/06/24 15:03) Numbness Medication List - Last Reconciled 04/06/24 by Virgen Paz MD atorvastatin 10 mg PO DAILY 90 days cholecalciferol (vitamin D3) 25 mcg PO DAILY fenofibrate 160 mg PO DAILY 90 days omeprazole 20 mg PO DAILY PRN sildenafil 100 mg PO ONCE PRN 90 days Tobacco use date assessed: 04/06/24 Fall risk assessment: 2 + Falls in past year Last assessed Fall Risk: 04/06/24 Dental Screening Dental Screen Date: 04/06/24 Did you have a dental visit in the last 12 months?: Yes Did you have a dental problem in the last 6 months where you did not have access to dental care?: No Was dental information given to patient?: Patient has dentist HPI Annual Exam HPI Details 74-year-old male smoker with a history o f prostate cancer hypercholesterolemia GERD coming in for physical exam last seen in 04/15/2023. Patient's colonoscopy is up-to-date 11/15/2019.. Review of the notes seen ortho in 03/15/2024 for left shoulder calcific tendonitis has had a cortisone shot in 10/15/2023. Patient had another congestion. Patient also follows up with urology prostate cancer diagnosed 2015 noted blood work to advised low vitamin B12 [facility] Medical History Medicare annual wellness visit, initial GERD (gastroesophageal reflux disease) Prostate cancer Vitamin D deficiency Tobacco abuse Hypercholesterolemia Surgical History History of skin graft History of colectomy History of ear surgery History of eye surgery History of placement of ear tubes History of surgery on arm History of nasal surgery History of excision of pilonidal cyst Family History Father Liver cancer Mother Liver cancer Sister Esophagus cancer Social History Housing: House Alcohol intake: current Alcohol intake frequency: 3 or more drinks per day Alcohol type: wine Patient Tobacco Use Status: Former Tobacco user Tobacco use type: Cigar Years Smoked: 3-4 cigars a month e-Cigarette/Vaping Use: Never Used Second Hand Smoke Exposure: Yes Current occupational status: retired Cognitive needs: No Hearing needs: No Vision needs: Yes Questionnaire PHQ-9 Over the last 2 weeks, how often have you been bothered by any of the following problems? 1. Little interest or pleasure in doing things: not at all 2. Feeling down, depressed, or hopeless: not at all 3. Trouble falling or staying asleep, or sleeping too much: not at all 4. Feeling tired or having little energy: not at all 5. Poor appetite or overeating: not at all 6. Feeling bad about yourself - or that you are a failure or have let yourself or your family down: not at all 7. Trouble concentrating on things, such as reading the newspaper or watching television: not at all 8. Moving or speaking so slowly that other people could have noticed. Or the opposite - being so fidgety or restless that you have been moving around a lot more than usual: not at all 9. Thoughts that you would be better off or of hurting yourself in some way: not at all Total score: 0 Depression Screening Interpretation: Negative Depression Screening Done: Yes Source: Developed by Drs. J Carlos Spain, Naz Mclaughlin, Suhas Tuttle and colleagues, with an educational cheryl from [employer]. Thrive Questionnaire Date Thrive assessed: 04/06/24 I am a: Patient What is your living situation today?: I have a steady place to live Within the past 12 months, did the food you bought not last and you didn't have the money to get more?: Never true Within the past 12 months, did you worry whether your food would run out before you got money to buy more?: Never true Currently or been in a relationship where the following occur: no concerns reported THRIVE Score: 0 AUDIT C Alcohol Use Questionnaire (AUDIT-C) 1. How often do you have a drink containing alcohol?: 2-3 times a week 2. How many drinks containing alcohol do you have on a typical day when you are drinking?: 1 or 2 3. How often do you have six or more drinks on one occasion?: Never Total Score: 3 VANESSA-7 AMB Questionnaire VANESSA-7 Date VANESSA - 7 assessed: 04/06/24 Feeling nervous, anxious, or on edge: 0 = Not at all Not being able to stop or control worryin = Not at all Worrying too much about different things: 0 = Not at all Trouble relaxin = Not at all Being so restless that it is hard to sit still: 0 = Not at all Becoming easily annoyed or irritable: 0 = Not at all Feeling afraid as if something awful might happen: 0 = Not at all Total VANESSA-7 score (0-4 normal; 5-9 mild; 10-14 moderate; 15-21 severe): 0 Source: Developed by Drs. J Carlos Spain, Naz Mclaughlin, Suhas Tuttle and colleagues, with an educational cheryl from [employer]. Review of Systems Const Denies poor appetite and Denies weakness Eyes Denies no additional complaints ENT Reports Normal hearing present, Denies dizziness, Denies nasal congestion, Denies tinnitus and Denies sore throat Card Denies chest pain, Denies syncope, Denies rapid heart rate and Denies dyspnea Resp Denies cough and Denies dyspnea GI Denies change in stool character, Reports constipation, Denies diarrhea, Denies nausea and Denies vomiting Denies dysuria and Denies urinary frequency Neuro Reports Normal hearing present, Denies confusion, Denies dizziness, Denies syncope and Denies weakness Psych Denies confusion Physical exam (Primary Care) Vital Signs: Last Vital Signs Pulse 53 04/06/24 15:03 BP 122/68 04/06/24 15:03 Pulse Ox 98 04/06/24 15:03 Oxygen Delivery Method Room Air 04/06/24 15:03 BMI result Body Mass Index 21.0 Tobacco/Smoking Status: Tobacco use Status Tobacco use date assessed 04/06/24 04/06/24 15:05 Patient Tobacco Use Status Former Tobacco user 04/06/24 15:05 Tobacco use type Cigar 04/06/24 15:05 e-Cigarette/Vaping Use Never Used 04/06/24 15:05 PHQ-9: PHQ-9 Score PHQ-9: Total score 0 04/06/24 15:29 Depression Screening Interpretation: Negative Thrive Assessment: Date of Thrive Assessment Date Thrive assessed 04/06/24 04/06/24 15:05 Currently or been in a relationship where the following occur: no concerns reported Const General: No confusion Orientation/consciousness: No confusion HENMT Head: Yes normocephalic Ears: external ears normal and TM's normal bilaterally Face and sinus: Yes normal facial exam Mouth: moist mucous membranes Throat: Yes tonsils normal Eyes Conjunctivae: conjunctivae normal Pupils: Equal, round and reactive pupils present and Pupil accommodation reflex normal Direct Ophthalmoscopy: normal light reflex Neck Neck: No lymphadenopathy Thyroid: Thyroid normal Chest Chest palpation & inspection: normal inspection of the chest Resp Effort & Inspection: normal respiratory effort and no audible wheezes Auscultation: clear to auscultation bilaterally, no crackles, no wheezes and lung sounds not diminished Cardio Rate: regular rate Rhythm: regular rhythm Peripheral pulses: radial pulses present and dorsalis pedis present GI Other: Declined rectal exam Palpation (GI): no masses Auscultation: normal bowel sounds and normoactive bowel sounds Rectal Exam - Male: Yes deferred Skin General skin exam: no rashes or lesions noted Rashes: no rashes Neuro General: No confusion Cranial nerves: Yes Equal, round and reactive pupils present and Yes Normal hearing present Cognition (Neuro): normal cognition Gait exam (Neuro): Normal gait present Motor exam (neuro): 5/5 motor strength present throughout Deep tendon reflexes (DTR's): Right brachioradialis reflex intensity grade: 2+, Left brachioradialis reflex intensity grade: 2+, Right patellar reflex intensity grade: 2+ and Left patellar reflex intensity grade: 2+ Extrem General: No edema Assessment and Plan Assessment & Plan (1) Annual physical exam: Code(s): Z00.00 - Encounter for general adult medical examination without abnormal findings Plan: Patient is advised to eat healthy, keep well hydrated, keep active and have adequate sleep. (2) Prostate cancer: Comment: Grade Group [address] Lombardo, Dr. Alarcon Code(s): C61 - Malignant neoplasm of prostate Plan: Patient follows up with urology prostate number good (3) Tobacco abuse: Code(s): Z72.0 - Tobacco use Plan: Patient is strongly advised to stop smoking! (4) Hypercholesterolemia: Code(s): E78.00 - Pure hypercholesterolemia, unspecified Plan: Avoid fried foods, chicken skin, eggs, butter margarine, pastries and meat. Be it pork or beef they have a lot of cholesterol on fenofibrate 160 mg once a day and atorvastatin 10 mg once a day. (5) GERD (gastroesophageal reflux disease): Code(s): K21.9 - Gastro-esophageal reflux disease without esophagitis Plan: Avoid the foods that causes that usually spicy foods, tomato products, juices, coffee, soda and foods that your sensitive to. After eating do not lie down, allow 3-4 hours before in lie down. And keep the head of bed above 30 degrees to avoid the acid from going up. (6) Calcific tendonitis of left shoulder: Code(s): M75.32 - Calcific tendinitis of left shoulder Plan: Patient follows up with ortho and has had injections on the shoulder (7) Vitamin B12 deficiency: Code(s): E53.8 - Deficiency of other specified B group vitamins Plan: Vitamin B12 1000 mcg once a day Orders: Orders Comprehensive Met. Panel 1 Year E78.00 - Pure hypercholesterolemia, unspecified Thyroid Stimulating Hormone 1 Year E78.00 - Pure hypercholesterolemia, unspecified Lipid Panel 1 Year E78.00 - Pure hypercholesterolemia, unspecified Complete Blood Count Auto Diff 1 Year E78.00 - Pure hypercholesterolemia, unspecified Free T4 (Free Thyroxine) 1 Year E78.00 - Pure hypercholesterolemia, unspecified Vitamin B12 and Folate 1 Year E78.00 - Pure hypercholesterolemia, unspecified Prostate Specific Antigen Scr 1 Year E78.00 - Pure hypercholesterolemia, unspecified Medications: New cyanocobalamin (vitamin B-12) 1,000 mcg PO DAILY 30 caps 3RF E53.8 - Deficiency of other specified B group vitamins Coding Level of Care Code Est Pt Prev Care >65y(45902) Diagnoses Annual physical exam Z00.00 Prostate cancer C61 Tobacco abuse Z72.0 Hypercholesterolemia E78.00 GERD (gastroesophageal reflux disease) K21.9 Calcific tendonitis of left shoulder M75.32 Vitamin B12 deficiency E53.8
[2024-04-06 15:03] VITALS: BP 122/68; PULSE 53; O2SAT 98; BMI 21.0
== END 2024-04-06 16:26 | disposition home or self-care (01) ==
PROVIDERS: PCP Internal Medicine; Visit Provider Internal Medicine
DX: Z00.00 Encounter for general adult medical examination without abnormal findings (principal); C61 Malignant neoplasm of prostate; Z72.0 Tobacco use; E78.00 Pure hypercholesterolemia, unspecified; K21.9 Gastro-esophageal reflux disease without esophagitis; M75.32 Calcific tendinitis of left shoulder; E53.8 Deficiency of other specified B group vitamins
CPT/HCPCS: 99397

== ENCOUNTER 2024-08-04 10:09 | Outpatient (REF) | payer MEDICARE, BC, SELFPAY ==
[2024-08-04 12:07] LABS: Prostate Specific Antigen < 0.10 ng/mL (<0.05-4.0)
== END 2024-08-04 10:10 | disposition home or self-care (01) ==
LOC: HO.LAB 10:09
PROVIDERS: PCP Internal Medicine; Visit Provider Urology
DX: C61 Malignant neoplasm of prostate (principal); Z12.5 Encounter for screening for malignant neoplasm of prostate
CPT/HCPCS: 36415; 84153

== ENCOUNTER 2024-08-17 09:53 | Outpatient (AMB) | payer MEDICARE, BC, SELFPAY ==
--- NOTE | 2024-08-17 09:49 | MHC.OFFVIS ---
Intake Visit Reasons: 6m/PSA(set) Intake Note: Patient is present for 6M/PSA Urology Medication:TAMSULOSIN, FINASTERIDE Antibiotic Allergy:SIMVASTATIN Blood Thinner:NONE Unit Manager Required: No Allergies simvastatin Adverse Reaction (Intermediate, Verified 08/17/24 09:50) Numbness HPI Comments Details: James is a very pleasant male. He is a patient of Dr. Paz. He is seen for the following urologic conditions. - prostate cancer - erectile dysfunction Telemedicine Evaluation 15 min Consultation Doximity Lambert Video attempted PSA remains well controlled Voiding parameters stable Nocturia 2-3 effective emptying, minimal urge Erectile dysfunction remains responsive to Viagra when needed Moving to yearly follow-up Prostate cancer Fatimah 8 2014 initial therapy radiation with 2 years hormone Prostate cancer diagnosed by Dr. Samuel 2014 Initial Fatimah score 4+4 Initial therapy - external beam radiation with 2 years GnRH therapy Laboratories - 12/17 PSA 0.1, 08/16 0.1, 12/18 <0.1, 02/16 <0.1, 08/18 <0.1, 02/17 <0.1, 08/19 <0.1 Erectile dysfunction Managed with Viagra Good effect Rx for viagra - through [facility] Medical History Medicare annual wellness visit, initial GERD (gastroesophageal reflux disease) Prostate cancer Vitamin D deficiency Tobacco abuse Hypercholesterolemia Surgical History History of skin graft History of colectomy History of ear surgery History of eye surgery History of placement of ear tubes History of surgery on arm History of nasal surgery History of excision of pilonidal cyst Family History Father Liver cancer Mother Liver cancer Sister Esophagus cancer Social History Housing: House Alcohol intake: current Alcohol intake frequency: 3 or more drinks per day Alcohol type: wine Patient Tobacco Use Status: Former Tobacco user Tobacco use type: Cigar Years Smoked: 3-4 cigars a month e-Cigarette/Vaping Use: Never Used Second Hand Smoke Exposure: Yes Current occupational status: retired Cognitive needs: No Hearing needs: No Vision needs: Yes Review of Systems Const Denies chills and Denies fever(s) Card Reports no additional complaints and Denies syncope Resp Denies cough GI Denies abdominal pain and Denies heartburn Reports as per HPI and Denies change in libido Neuro Denies syncope Psych Denies change in libido Endo Denies change in libido Physical Exam Const General: cooperative, healthy appearing, comfortable and no acute distress Orientation/consciousness: patient oriented x3 HEENT Face and sinus: Yes normal facial exam Mouth: moist mucous membranes Neck Neck: Yes normal visual inspection, Yes full ROM and Yes trachea midline Chest Chest palpation & inspection: normal inspection of the chest Resp Effort & Inspection: normal respiratory effort, able to speak in complete sentences and no respiratory distress GI Inspection: Yes normal to inspection Back/Spine/Pelvis Cervical Spine: normal cervical lordosis Thoracic/Lumbar Spine: thoracic and lumbar spine normal to inspection Skin General skin exam: no rashes or lesions noted Neuro General: patient oriented x3, gait normal, tone normal and moves all extremities Extrem General: Yes normal to inspection and Yes capillary refill normal Telehealth Telehealth Telehealth Platform: [employer] Workflow Management Location of provider rendering services: practice address Location of patient: address on file Patient Identification confirmed using: Name, : Yes Telehealth method: video Patient verbally consented to treatment: Yes Patient verbally consented to billing insurance company: Yes Patient informed of any privacy concerns related to visit: Yes Minutes spent on Phone/Video with Pt.: 15 Assessment & Plan Assessment & Plan (1) Prostate cancer: Comment: Grade Group [address] Lombardo, Dr. Alarcon Code(s): C61 - Malignant neoplasm of prostate Category: Medical Plan Twelve month follow-up Orders: Orders Prostate Specific Antigen 364 Days C61 - Malignant neoplasm of prostate Patient Instructions: Imaging studies, laboratory and physical exam results were discussed and reviewed in detail. No major barriers to patient understanding were identified. An opportunity to ask questions regarding the treatment plan was provided. All questions were answered. The patient expressed understanding and agreement with the above treatment plan. The patient is aware they should contact our office by phone for worsening of their current condition or the appearance of new urologic symptoms. Compliance is encouraged with any medications and followup testing that is ordered. It is a privilege to participate in the urologic care of your patient. If you have any questions or concerns regarding treatment for the above conditions, or other urologic issues, please do not hesitate to contact me. The office telephone contact is [phone]. This note is constructed using voice recognition software. While every effort has been made to ensure accuracy registered health nurse errors may have been included. Yours sincerely, Dr Sorin King MD, [facility] - Urology Providers of Expert, Compassionate Care for the Genitourinary System Coding Level of Care Code Tele Est Pt Level 4 (80100) Diagnoses Prostate cancer C61
== END 2024-08-17 10:29 | disposition home or self-care (01) ==
LOC: HO.HUSH 09:53
PROVIDERS: PCP Internal Medicine; Visit Provider Urology
DX: C61 Malignant neoplasm of prostate (principal)
CPT/HCPCS: 99214

== ENCOUNTER → 2024-08-17 09:53 | Outpatient (BNVA) | payer MEDICARE, BC, SELFPAY | PROVIDERS: PCP Internal Medicine; Visit Provider Urology ==

== ENCOUNTER 2025-04-04 10:21 | Outpatient (REF) | payer MEDICARE, BC, SELFPAY ==
[2025-04-04 10:30] LABS: MANUAL DIFF FLAG NO
[2025-04-04 10:49] LABS: Basophils Percent Auto 0.3 % (0-2); Eosinophils Absolute Auto 0.4 X10*3/uL (0.0-0.4); Eosinophils Percent Auto 6.5 % (0-4); Hematocrit 42.5 % (42.0-52.0); Hemoglobin 14.7 g/dl (14.0-18.0); Imm Gran Abs Auto 0.02 X10*3/uL (0.00-0.03); Imm Gran Pct Auto 0.3 % (0.0-0.4); Lymphocytes Absolute Auto 1.8 X10*3/uL (1.2-4.9); Lymphocytes Percent Auto 29.3 % (20-40); Mean Corpuscular HGB Conc 34.6 g/dl (31.0-36.0); Mean Corpuscular Hemoglobin 31.2 pg (27.0-33.0); Mean Corpuscular Volume 90.2 fL (80.0-98.0); Mean Platelet Volume 9.5 fL (9.4-12.4); Monocytes Absolute Auto 0.4 X10*3/uL (0.1-1.2); Monocytes Percent Auto 7.1 % (2-11); Neutrophils Absolute Auto 3.4 x10*3/uL (2.0-8.3); Neutrophils Percent Auto 56.5 % (45-73); Platelet Count 233 X10*3/uL (160-400); Red Blood Count 4.71 X10*6/uL (4.60-5.80); Red Cell Distribution Width 13.5 % (11.0-16.0)
[2025-04-04 11:22] LABS: Alanine Aminotransferase 14 U/L (0-40); Albumin Level 4.5 g/dL (3.5-5.0); Alkaline Phosphatase 34 U/L (39-117); Anion Gap 6 (12-20); Aspartate Amino Transferase 20 U/L (5-37); Blood Urea Nitrogen 20 mg/dL (9-16); Carbon Dioxide 31 mmol/L (22-29); Chloride 110 mmol/L (96-108); Cholesterol 153 mg/dL (<200); Estimated Glomerular Filt Rate > 60; Glucose Random 89 mg/dL (60-115); HDL Cholesterol 37 mg/dL (>40); LDL Cholesterol Calculated 91 mg/dL (<100); Potassium 4.4 mmol/L (3.3-5.1); Sodium 143 mmol/L (135-145); Total Protein 6.9 g/dL (6.5-8.0); Triglycerides 125 mg/dL (<150)
--- OUTSIDE RECORDS SUMMARY | 2025-04-04 11:31 | XMS_ITS | Patient Health Record ---
Author Organization [facility] Address [address] [place] [address] Care Team Providers Care Biomedical Engineering Aide Name Role Phone Po Virgen FERNÁNDEZ Primary Care Provider Jean Carlos Soto Jr Reason For Referral No Information Medications Medication SIG (Take, Route, Fr equency, Duration) Notes Start Date End Date Status Omeprazole 20 MG 1 capsule 30 minutes before morning meal Orally Once a day/otc Active Vitamin D3 Active Simvastatin 20 MG 1 tablet in the even ing Orally Once a day Active Tamsulosin HCl 0.4 MG 1 capsule Orally O nce a day for 30 day(s) Active Immunizations Vaccine Route Administration Date Status Comme nts Influenza Unknown 08/11/2019 Administered Influenza Unknown 01/03/2022 Administered Social History Tobacco Use: Social History Observation Description Date Details (start date - stop date) Former Smoker NA - NA Tobacco Use/Smoking Question Answer Notes Patient is a former smoker How long has it been since you last smoked? < 1 month Alcohol Screen Question Answer Notes Did you have a drink contain ing alcohol in the past year? Yes How often did you have a dri nk containing alcohol in the past year? 2 to 4 times a month (2 points) How many drinks did you have on a typical day when you were drinking in the past year? 1 or 2 drinks (0 point) How often did you have 6 or more drinks on one occasion in the past year? Never (0 point) Points 2 Interpretation Negative Section Notes: ocassional cigar ocassional cigar. He is in t he process of quitting smoking cigars. ocassional cigar. He is in t he process of quitting smoking cigars. Problems Problem Type SNOMED Code ICD Code Onset Dates Problem Status W/U Status Risk Notes Problem 576153820 Colon cancer screening (Z12.11) Active confirmed Problem Dysphagia (23132428) Dysphagia (R13.10) Active confirmed Problem [id number] Dysphagia, unspecified type (R13.10) Active confirmed Plan Of Treatment Future Test Test Name Order Date COLONOSCOPY 12/30/2013 COLONOSCOPY 08/25/2019 UPPER GI ENDOSCOPY [place] DILATION OF ESOPH 01/03/2022 Insurance Providers Payer Name Payer Address Payer Phone Subscriber Number Group Number Insured Name Patient Relationship to Insured Coverage Start Date Coverage End Date MEDICARE OF [place] [address] [place] [address] [id number] MARLIN GONZALEZ Self - patient is the insured [facility] [address] [place], [place] [id number] MARLNI GONZALEZ Self - patient is the insured Medical (General) History Medical History History ICD Code elevated Cholesterol colon polyps BPH/prostate cancer Colon polyps, last colonosco py 11/19/19, adenoma x2, prior tubular adenoma requiring low anterior resection (2007) Surgical History Surgery Date(Month/Year) eye surgery for esotropia nasal surgery myringotomy excision and drainage of an axillary abs cess hernia repair arm surgery nose surgery
[2025-04-04 11:42] LABS: Free T4 (Free Thyroxine) 0.82 ng/dL (0.71-1.85); Thyroid Stimulating Hormone 1.59 uIU/mL (0.32-4.0)
[2025-04-04 11:48] LABS: Folate 7.3 ng/mL (> or = 4.0); Prostate Specific Antigen Scr < 0.10 ng/mL (<0.05-4.0); Vitamin B12 811 pg/mL (200-900)
== END 2025-04-04 10:22 | disposition home or self-care (01) ==
LOC: HO.LAB 10:21
PROVIDERS: PCP Internal Medicine; Visit Provider Internal Medicine
DX: Z12.5 Encounter for screening for malignant neoplasm of prostate (principal); E78.00 Pure hypercholesterolemia, unspecified
CPT/HCPCS: 36415; 80053; 80061; 82607; 82746; 84153; 84439; 84443; 85025

== ENCOUNTER 2025-04-11 15:58 | Outpatient (AMB) | payer MEDICARE, BC, SELFPAY ==
[2025-04-11 16:00] VITALS: BP 106/64; PULSE 62; O2SAT 99; BMI 20.5
--- NOTE | 2025-04-11 16:00 | MHC.PC.OV ---
Vital Signs 04/11/25 16:00 Height 5 ft 8 in Weight 135 lb 2 oz BMI 20.5 BP 106/64 Blood Pressure Location Lt brachial Position Sitting Pulse 62 Pulse Source Pulse Oximeter Pulse Oximetry (%) 99 Oxygen Delivery Method Room Air Intake Visit Reasons: annual exam Hosted Services Analyst Required: No Accompanied by: Self / Same As Patient Allergies simvastatin Adverse Reaction (Intermediate, Verified 04/11/25 16:03) Numbness Medication List - Last Reconciled 04/11/25 by Virgen Paz MD atorvastatin 10 mg PO DAILY 90 days cholecalciferol (vitamin D3) 25 mcg PO DAILY cyanocobalamin (vitamin B-12) 1,000 mcg PO DAILY fenofibrate 160 mg PO DAILY 90 days omeprazole 20 mg PO DAILY PRN Tobacco use date assessed: 04/11/25 Fall risk assessment: No Falls in past year Last assessed Fall Risk: 04/11/25 Dental Screening Dental Screen Date: 04/11/25 Did you have a dental visit in the last 12 months?: Yes Did you have a dental problem in the last 6 months where you did not have access to dental care?: No Was dental information given to patient?: Patient has dentist [facility] Medical History Medicare annual wellness visit, initial GERD (gastroesophageal reflux disease) Prostate cancer Vitamin D deficiency Tobacco abuse Hypercholesterolemia Surgical History History of skin graft History of colectomy History of ear surgery History of eye surgery History of placement of ear tubes History of surgery on arm History of nasal surgery History of excision of pilonidal cyst Family History Father Liver cancer Mother Liver cancer Sister Esophagus cancer Social History (Updated 04/11/25 @ 16:18 by Virgen Paz MD) Housing: House Alcohol intake: current Alcohol intake frequency: 3 or more drinks per day Alcohol type: wine Comment: glass of wine 3x a week Patient Tobacco Use Status: Former Tobacco user Tobacco use type: Cigar Years Smoked: 3-4 cigars a month e-Cigarette/Vaping Use: Never Used Second Hand Smoke Exposure: Yes Current occupational status: retired Cognitive needs: No Hearing needs: No Vision needs: Yes Questionnaire PHQ-9 Over the last 2 weeks, how often have you been bothered by any of the following problems? 1. Little interest or pleasure in doing things: not at all 2. Feeling down, depressed, or hopeless: not at all 3. Trouble falling or staying asleep, or sleeping too much: not at all 4. Feeling tired or having little energy: not at all 5. Poor appetite or overeating: not at all 6. Feeling bad about yourself - or that you are a failure or have let yourself or your family down: not at all 7. Trouble concentrating on things, such as reading the newspaper or watching television: not at all 8. Moving or speaking so slowly that other people could have noticed. Or the opposite - being so fidgety or restless that you have been moving around a lot more than usual: not at all 9. Thoughts that you would be better off or of hurting yourself in some way: not at all Total score: 0 Source: Developed by Drs. J Carlos Spain, Naz Mclaughlin, Suhas Tuttle and colleagues, with an educational cheryl from [employer]. Thrive Questionnaire Date Thrive assessed: 04/11/25 I am a: Patient What is your living situation today?: I have a steady place to live Within the past 12 months, did the food you bought not last and you didn't have the money to get more?: Never true Within the past 12 months, did you worry whether your food would run out before you got money to buy more?: Never true Do you have trouble paying for medicines?: No Do you have trouble getting transportation to medical appointments?: No Do you have trouble paying your heating and electricity bill?: No Do you have trouble taking care of your child, family member or friend?: No Do you have trouble with day-to-day activities such as bathing, preparing meals, shopping, managing finances, etc.?: No Are you currently unemployed and looking for a job?: No Are you interested in more education?: No Please select the resources that you would like help with: None Currently or been in a relationship where the following occur: No concerns reported THRIVE Score: 0 AUDIT C Alcohol Use Questionnaire (AUDIT-C) 1. How often do you have a drink containing alcohol?: Monthly or less 2. How many drinks containing alcohol do you have on a typical day when you are drinking?: 1 or 2 3. How often do you have six or more drinks on one occasion?: Never Total Score: 1 VANESSA-7 AMB Questionnaire VANESSA-7 Date VANESSA - 7 assessed: 04/11/25 Feeling nervous, anxious, or on edge: 0 = Not at all Not being able to stop or control worryin = Not at all Worrying too much about different things: 0 = Not at all Trouble relaxin = Not at all Being so restless that it is hard to sit still: 0 = Not at all Becoming easily annoyed or irritable: 0 = Not at all Feeling afraid as if something awful might happen: 0 = Not at all Total VANESSA-7 score (0-4 normal; 5-9 mild; 10-14 moderate; 15-21 severe): 0 Source: Developed by Drs. J Carlos Spain, Naz Mclaughlin, Suhas Tuttle and colleagues, with an educational cheryl from [employer]. Review of Systems Const Denies poor appetite and Denies weakness Eyes Denies no additional complaints ENT Reports Normal hearing present, Denies dizziness, Denies nasal congestion, Denies tinnitus and Denies sore throat Card Denies chest pain, Denies syncope, Denies rapid heart rate and Denies dyspnea Resp Denies cough and Denies dyspnea GI Denies change in stool character, Reports constipation, Denies diarrhea, Denies nausea and Denies vomiting Denies dysuria and Denies urinary frequency Neuro Reports Normal hearing present, Denies confusion, Denies dizziness, Denies syncope and Denies weakness Psych Denies confusion Physical exam (Primary Care) Vital Signs: Last Vital Signs Pulse 62 04/11/25 16:00 BP 106/64 04/11/25 16:00 Pulse Ox 99 04/11/25 16:00 Oxygen Delivery Method Room Air 04/11/25 16:00 BMI result Body Mass Index 20.5 Tobacco/Smoking Status: Tobacco use Status Tobacco use date assessed 04/11/25 04/11/25 16:03 Patient Tobacco Use Status Former Tobacco user 04/11/25 16:18 Tobacco use type Cigar 04/11/25 16:18 e-Cigarette/Vaping Use Never Used 04/11/25 16:18 PHQ-9: PHQ-9 Score PHQ-9: Total score 0 04/11/25 16:17 Thrive Assessment: Date of Thrive Assessment Date Thrive assessed 04/11/25 04/11/25 16:03 Currently or been in a relationship where the following occur: No concerns reported Const General: No confusion Orientation/consciousness: No confusion HENMT Head: Yes normocephalic Ears: external ears normal and TM's normal bilaterally Face and sinus: Yes normal facial exam Mouth: moist mucous membranes Throat: Yes tonsils normal Eyes Conjunctivae: conjunctivae normal Pupils: Equal, round and reactive pupils present and Pupil accommodation reflex normal Direct Ophthalmoscopy: normal light reflex Neck Neck: No lymphadenopathy Thyroid: Thyroid normal Chest Chest palpation & inspection: normal inspection of the chest Resp Effort & Inspection: normal respiratory effort and no audible wheezes Auscultation: clear to auscultation bilaterally, no crackles, no wheezes and lung sounds not diminished Cardio Rate: regular rate Rhythm: regular rhythm Peripheral pulses: radial pulses present and dorsalis pedis present GI Other: decline Palpation (GI): no masses Auscultation: normal bowel sounds and normoactive bowel sounds Rectal Exam - Male: Yes deferred Other: declined Skin General skin exam: no rashes or lesions noted Rashes: no rashes Neuro General: No confusion Cranial nerves: Yes Equal, round and reactive pupils present and Yes Normal hearing present Cognition (Neuro): normal cognition Gait exam (Neuro): Normal gait present Motor exam (neuro): 5/5 motor strength present throughout Deep tendon reflexes (DTR's): Right brachioradialis reflex intensity grade: 2+, Left brachioradialis reflex intensity grade: 2+, Right patellar reflex intensity grade: 2+ and Left patellar reflex intensity grade: 2+ Extrem General: No edema Coding Level of Care Code Est Pt Prev Care >65y(25244) Diagnoses Annual physical exam Z00.00 Tobacco abuse Z72.0 Hypercholesterolemia E78.00 Prostate cancer C61 GERD (gastroesophageal reflux disease) K21.9 Assessment & Plan Assessment & Plan (1) Annual physical exam: Code(s): Z00.00 - Encounter for general adult medical examination without abnormal findings Category: Medical Plan: Patient is advised to eat healthy, keep well hydrated, keep active and have adequate sleep. (2) Tobacco abuse: Code(s): Z72.0 - Tobacco use Category: Medical Plan: Patient is strongly advised to stop smoking (3) Hypercholesterolemia: Code(s): E78.00 - Pure hypercholesterolemia, unspecified Category: Medical Plan: Avoid fried foods, chicken skin, eggs, butter margarine, pastries and meat. Be it pork or beef they have a lot of cholesterol LDL goal of less than 130 and triglyceride of less than 150 on fenofibrate and atorvastatin (4) Prostate cancer: Comment: Grade Group [address] Lombardo, Dr. Alarcon Code(s): C61 - Malignant neoplasm of prostate Category: Medical Plan: Continue to follow-up with urology under surveillance (5) GERD (gastroesophageal reflux disease): Code(s): K21.9 - Gastro-esophageal reflux disease without esophagitis Category: Medical Plan: Avoid the foods that causes that usually spicy foods, tomato products, juices, coffee, soda and foods that your sensitive to. After eating do not lie down, allow 3-4 hours before in lie down. And keep the head of bed above 30 degrees to avoid the acid from going up. Plan History of Present Illness The patient is a 75-year-old male presenting for a physical examination and wellness visit. The patient has a history of hypercholesterolemia, managed with atorvastatin and fenofibrate, with recent blood work indicating good cholesterol levels. He is also a smoker, which is a contributing factor to his hypercholesterolemia, and has been advised to quit smoking. The patient has a history of prostate cancer and is under surveillance with urology, with an undetectable PSA level noted in recent tests. He has been diagnosed with gastroesophageal reflux disease (GERD) since 2013 and is currently taking omeprazole for management. The patient reports symptoms consistent with allergic rhinitis, including sneezing and nasal congestion, which have been persistent for the past month. He has tried lavf-xur-jzeoiut medications such as Shireen and Claritin, and has been advised to consider Zyrtec or Benadryl for symptom relief. Preventative care measures include a colonoscopy last performed in 2019, which showed a tubular adenoma, and he has been informed that no further colonoscopies are needed at this time. Health Maintenance - Colonoscopy last performed in 2019, no further follow-up needed at this time - Advised to quit smoking to improve overall health - Blood pressure monitoring with recent reading of 134/64 mmHg - Cholesterol management with atorvastatin and fenofibrate, LDL goal of less than 130 mg/dL - Vaccinations up to date, including tetanus and pneumonia shots Social History - Smoker, advised to quit smoking - Consumes alcohol, including wine and cognac, approximately three times a week - Lives in an apartment with an antiquated air system, possibly contributing to allergies Review of Systems - General: Denies weight loss, reports good appetite - Cardiovascular: Denies chest pain, syncope, or palpitations - Respiratory: Denies dyspnea or cough - Gastrointestinal: Denies nausea, vomiting, or changes in bowel habits - Genitourinary: Reports nocturia, waking up two to three times per night to urinate - Neurological: Denies dizziness or headaches, reports hearing loss in one ear - Dermatological: Reports sneezing and nasal congestion, consistent with allergic rhinitis Physical Exam General: Cooperative, healthy appearing, comfortable, no acute distress and well developed Orientation: Patient oriented x3 Limitations: No limitations Head: Normal to inspection Ears: Hearing impaired in the left ear, right ear grossly normal Nose: Normal external nose present, but patient reports sneezing and nasal congestion likely due to allergies Face and sinus: Normal facial exam Eyes: Appearance normal, both eyes and all related structures Neck: Normal visual inspection and Yes full ROM Respiratory: Normal respiratory effort and able to speak in complete sentences. Clear to auscultation bilaterally Cardiovascular: Regular rate and rhythm. Normal S1 and S2 GI: Normal to inspection. Soft to palpation and nontender Skin: No rashes or lesions noted Neuro: Patient oriented x3 Extremities: Normal to inspection Results - Labs: Normal blood count, electrolytes, renal function, blood sugar, liver function, cholesterol levels, undetectable PSA, normal B12, folic acid, and thyroid levels Plan The patient is advised to continue current management for hypercholesterolemia with atorvastatin and fenofibrate, aiming for an LDL goal of less than 130 mg/dL and triglycerides less than 150 mg/dL. Smoking cessation is strongly recommended to improve overall health and reduce cardiovascular risk. For prostate cancer, the patient should continue regular follow-ups with urology, as current surveillance indicates an undetectable PSA level. For GERD, the patient is to continue taking omeprazole as needed for symptom control. Regarding allergic rhinitis, the patient is advised to try Zyrtec or Benadryl for symptom relief, considering the side effects of drowsiness. Environmental factors, such as the apartment's air system, should be considered as potential allergens. Preventative care includes maintaining up-to-date vaccinations and scheduling a blood test and physical examination for the following year. Patient was informed and verbally consented to the use of an ambient scribe for clinic note documentation during this visit. Discussion Notes During the visit, I discussed the importance of managing hypercholesterolemia with the patient, emphasizing the need to maintain LDL levels below 130 mg/dL and triglycerides below 150 mg/dL. We also talked about the benefits of smoking cessation for overall health improvement and cardiovascular risk reduction. I advised the patient to continue regular urology follow-ups for prostate cancer surveillance, given the undetectable PSA levels. For GERD, I recommended continuing omeprazole as needed. Regarding allergic rhinitis, I suggested trying Zyrtec or Benadryl, while considering potential drowsiness as a side effect. We discussed the possibility of environmental allergens, such as the apartment's air system, contributing to symptoms. I ensured the patient is up-to-date with vaccinations and scheduled a blood test and physical examination for next year. Patient Instructions - Continue taking atorvastatin and fenofibrate as prescribed. - Quit smoking to improve health and reduce heart disease risk. - Follow up with urology for prostate cancer surveillance. - Take omeprazole for GERD symptoms as needed. - Try Zyrtec or Benadryl for allergy relief, be aware of drowsiness. - Consider potential allergens in the home environment. - Stay up-to-date with vaccinations and schedule a blood test and physical exam for next year. Orders: Orders Comprehensive Met. Panel 1 Year C61 - Malignant neoplasm of prostate Free T4 (Free Thyroxine) 1 Year C61 - Malignant neoplasm of prostate Lipid Panel 1 Year C61 - Malignant neoplasm of prostate, E78.00 - Pure hypercholesterolemia, unspecified PSA,Total (Free>4and<10) 1 Year C61 - Malignant neoplasm of prostate Complete Blood Count Auto Diff 1 Year C61 - Malignant neoplasm of prostate Thyroid Stimulating Hormone 1 Year C61 - Malignant neoplasm of prostate Vitamin B12 and Folate 1 Year C61 - Malignant neoplasm of prostate
--- OUTSIDE RECORDS SUMMARY | 2025-04-11 17:45 | XMS_ITS | Patient Health Record ---
Author Organization [facility] Address [address] [place] [address] Care Team Providers Care Drywall Installer Name Role Phone Po Virgen FERNÁNDEZ Primary [...] Problem Status W/U Status Risk Notes Problem [id number] Colon cancer screening (Z12.11) Active confirmed Problem Dysphagia (83012087) Dysphagia (R13.10) Active confirmed Problem [id number] Dysphagia, unspecified type (R13.10) Active confirmed Plan Of Treatment Future Test Test Name Order Date COLONOSCOPY 12/30/2013 COLONOSCOPY 08/25/2019 UPPER GI ENDOSCOPY [place] DILATION OF ESOPH 01/03/2022 Insurance Providers Payer Name Payer Address Payer Phone Subscriber Number Group Number Insured Name Patient Relationship to Insured Coverage Start Date Coverage End Date MEDICARE OF [place] [address] [place] [address] [id number] MARLIN GONZALEZ Self - patient is the insured [facility] [address] [place], [place] [id number] MARLIN GONZALEZ Self - patient is the [...]
== END 2025-04-11 16:40 | disposition home or self-care (01) ==
LOC: HO.HMCH 15:59
PROVIDERS: PCP Internal Medicine; Visit Provider Internal Medicine
DX: Z00.00 Encounter for general adult medical examination without abnormal findings (principal); C61 Malignant neoplasm of prostate; K21.9 Gastro-esophageal reflux disease without esophagitis; E78.00 Pure hypercholesterolemia, unspecified; Z72.0 Tobacco use

== ENCOUNTER → 2025-04-11 15:58 | Outpatient (BNVA) | payer MEDICARE, BC, SELFPAY | PROVIDERS: PCP Internal Medicine; Visit Provider Internal Medicine | DX: Z00.00 Encounter for general adult medical examination without abnormal findings (principal); E78.00 Pure hypercholesterolemia, unspecified; C61 Malignant neoplasm of prostate; K21.9 Gastro-esophageal reflux disease without esophagitis; Z87.891 Personal history of nicotine dependence | CPT/HCPCS: 99397 ==

== ENCOUNTER 2025-08-03 10:29 | Outpatient (REF) | payer MEDICARE, BC, SELFPAY ==
[2025-08-03 12:40] LABS: Prostate Specific Antigen < 0.10 ng/mL (<0.05-4.0)
== END 2025-08-03 10:30 | disposition home or self-care (01) ==
LOC: HO.LAB 10:29
PROVIDERS: PCP Internal Medicine; Visit Provider Urology
DX: C61 Malignant neoplasm of prostate (principal); Z12.5 Encounter for screening for malignant neoplasm of prostate
CPT/HCPCS: 36415; 84153